=== PATIENT | male | born 1975 ===

== ENCOUNTER 2016-08-18 16:13 | Emergency (ER) | payer MEDICAID ==
[2016-08-18 16:34] VITALS: BMI 25.0
[2016-08-18 16:55] VITALS: RESP 18; TEMP 98.1; O2SAT 98
--- NOTE | 2016-08-18 17:13 | C.PDOC ---
Chief Complaint (Nursing): Abnormal Skin Integrity Past Medical History Vital Signs: Last Vital Signs Temp 98.1 F 08/18/16 16:54 Pulse 58 L 08/18/16 16:54 Resp 18 08/18/16 16:54 BP 96/54 L 08/18/16 16:54 Pulse Ox 98 08/18/16 16:54 - Medical History PMH: Anxiety, Asthma, Bipolar Disorder, Bronchitis, CHF, COPD, Depression, Diabetes, HTN, Hypercholesterolemia, Kidney Stones, Migraine, Chronic Kidney Disease, Sleep Apnea (bipap) Surgical History: Back Surgery - [facility] Procedures ENDOSC POLYPECTOMY OF LG INTEST (02/14/15) HIGHLY SELECT VAGOTOMY (01/20/15) LAPAROSCOPIC GASTROENTEROSTOMY (01/20/15) OTHER GASTROSCOPY (01/20/15) OTHER SKIN & SUBQ I D (04/19/14) Family History: States: Unknown Family Hx - Social History Hx Tobacco Use: Yes Hx Alcohol Use: No Hx Substance Use: Yes (marijuana) - Immunization History Hx Tetanus Toxoid Vaccination: No Hx Influenza Vaccination: No Hx Pneumococcal Vaccination: No ED Course And Treatment O2 Sat by Pulse Oximetry: 98
--- NOTE | 2016-08-18 17:15 | C.PDOC ---
History Of Present Illness 41 yr old male with PMHx of diabetes and HTN, presents to the ER stating yesterday he was bite by his dog on the right thumb. Patient reports of bite omar on the right thumb and pain to the area due to jerking his hand and hitting his hand on the wall. Patient reports of mild swelling. Patient denies fever, nausea, vomiting, shoulder pain, weakness or numbness. Dog is UTD on vaccinations. Time Seen by Provider: 08/18/16 16:58 Chief Complaint (Nursing): Abnormal Skin Integrity History Per: Patient History/Exam Limitations: no limitations Onset/Duration Of Symptoms: Days (1) Current Symptoms Are (Timing): Still Present - Animal Bite Description Of The Animal: Family Pet Reports Animal Appears: Well Reports Animal's Immunization Status: UTD Past Medical History Reviewed: Historical Data, Nursing Documentation, Vital Signs Vital Signs: Last Vital Signs Temp 98.1 F 08/18/16 16:54 Pulse 58 L 08/18/16 16:54 Resp 18 08/18/16 16:54 BP 96/54 L 08/18/16 16:54 Pulse Ox 98 08/18/16 17:19 - Medical History PMH: Anxiety, Asthma, Bipolar Disorder, Bronchitis, CHF, COPD, Depression, Diabetes, HTN, Hypercholesterolemia, Kidney Stones, Migraine, Chronic Kidney Disease, Sleep Apnea (bipap) Surgical History: Back Surgery - [facility] Procedures ENDOSC POLYPECTOMY OF LG INTEST (02/14/15) HIGHLY SELECT VAGOTOMY (01/20/15) LAPAROSCOPIC GASTROENTEROSTOMY (01/20/15) OTHER GASTROSCOPY (01/20/15) OTHER SKIN & SUBQ I D (04/19/14) Family History: States: No Known Family Hx - Social History Hx Tobacco Use: Yes Hx Alcohol Use: No Hx Substance Use: Yes (marijuana) - Immunization History Hx Tetanus Toxoid Vaccination: No Hx Influenza Vaccination: No Hx Pneumococcal Vaccination: No Review Of Systems Except As Marked, All Systems Reviewed And Found Negative. Constitutional: Negative for: Fever Gastrointestinal: Negative for: Nausea, Vomiting Musculoskeletal: Positive for: Hand Pain (Right hand, thumb pain ). Negative for: Shoulder Pain Skin: Positive for: Other (Dog bite to the right thumb) Neurological: Negative for: Weakness, Numbness Physical Exam - Physical Exam Appears: Non-toxic, No Acute Distress Skin: Warm, Dry, Other (Right hand, 0.5cm abrasion to the right thumb. ) Head: Atraumatic, Normacephalic Oral Mucosa: Moist Extremity: Normal ROM, Other (Right Hand, Thumb - Minimal swelling. Tender to touch. ) Neurological/Psych: Oriented x3, Normal Speech, Normal Motor ED Course And Treatment O2 Sat by Pulse Oximetry: 98 Medical Decision Making Medical Decision Making: PLAN: * X-Ray - Right Hand Thumb * Augmentin PO * Motrin PO * Tylenol PO Disposition Counseled Patient/Family Regarding: Studies Performed, Diagnosis, Need For Followup - Disposition Disposition: HOME/ ROUTINE Disposition Time: 18:09 Condition: STABLE Additional Instructions: Keep wound clean and dry. Follow up with your doctor as need. Prescriptions: Amoxicillin/Clavulanate [Augmentin 875 MG-125 MG] 1 tab PO BID #14 tab Ibuprofen [Motrin] 600 mg PO TID #15 tab Instructions: Animal Bite (ED) Forms: General Discharge Instructions - POA Present On Arrival: None - Clinical Impression Clinical Impression: Abrasion - Scribe Statement The provider has reviewed the documentation as recorded by the Melanie Shaw Provider Attestation: All medical record entries made by the Melanie were at my direction and personally dictated by me. I have reviewed the chart and agree that the record accurately reflects my personal performance of the history, physical exam, medical decision making, and the department course for this patient. I have also personally directed, reviewed, and agree with the discharge instructions and disposition.
[2016-08-18] MEDS ORDERED: Amoxicillin-Clav 875-125 mg Tab PO STA (17:17)
[2016-08-18] MEDS ORDERED: Amoxicillin-Clav 875-125 mg Tab PO ONE (17:23)
--- NOTE | 2016-08-18 17:45 | RAD ---
PROCEDURE: Right Thumb radiographs. HISTORY: dog bite COMPARISON: 08/15/2015. TECHNIQUE: AP radiograph of the right hand, as well as spot oblique and lateral images of thumb were obtained. FINDINGS: RIGHT THUMB: Normal right thumb, without fracture or focal lesion. Remainder of the right hand (as seen on the AP view) grossly unremarkable. JOINTS: Normal. SOFT TISSUES: Normal. No radiopaque foreign body. OTHER FINDINGS: None. IMPRESSION: Normal examination. No acute fracture or radiopaque foreign body.
[2016-08-18 18:34] VITALS: BP 102/61; PULSE 61
[2016-08-18] MEDS ORDERED: Bacitracin 500 Units/gm Oint Foilpak UD ONE (18:42)
== END 2016-08-18 18:34 | disposition home or self-care (01) ==
LOC: SUPCPDRO 16:13 → C.ER 16:13
DX: S60.311A Abrasion of right thumb, initial encounter (principal); W54.0XXA Bitten by dog, initial encounter; Y92.009 Unspecified place in unspecified non-institutional (private) residence as the place of occurrence of the external cause

== ENCOUNTER 2016-08-28 07:57 | Emergency (ER) | payer MEDICAID ==
[2016-08-28 07:58] VITALS: BMI 25.0
[2016-08-28 08:06] VITALS: BP 116/74; PULSE 59; RESP 18; TEMP 98.4; O2SAT 100
--- NOTE | 2016-08-28 08:12 | C.PDOC ---
History Of Present Illness 41-year-old male, PMHx includes Hypertension and Diabetes, presents to the emergency department with complaints of right thumb injury sustained yesterday. Patient states he was accidentally struck on base of right thumb with a sledgeharmer. Pain and swelling to the area, that is worse with movement. Patient seen on 08/18, and had treatment for dog bite to right thumb, and he was discharged with Augmentin. No other associated symptoms; Patient completed course of antibx last week. ACCID STRUCK BASE OF R THUMB W SLEDGEHAMMER. PAIN AND SWELLING TO AREA, WORSE W MOVEMENT. seen 08/18 tx for dog bite r thumb dc w augmentin rx. DENIES OTHER ASSOC SX. PS COMPLETED ABX LAST WEEK PMHx of diabetes and HTN EXAM NAD NONTOXIC EXT R HAND MILD SWELL BASE R THUMB NO GROSS DEFORM, LIMTIED ROM DUE TO PAIN. SKIN HEALING BITE WOUNDS X 2, NO S/S INFXN Time Seen by Provider: 08/28/16 08:10 Chief Complaint (Nursing): Finger,Hand,&Wrist History Per: Patient History/Exam Limitations: no limitations Past Medical History Reviewed: Historical Data, Nursing Documentation, Vital Signs Vital Signs: Last Vital Signs Temp 98.4 F 08/28/16 08:03 Pulse 59 L 08/28/16 08:03 Resp 18 08/28/16 08:03 BP 116/74 08/28/16 08:03 Pulse Ox 100 08/28/16 08:48 - Medical History PMH: Anxiety, Asthma, Bipolar Disorder, Bronchitis, CHF, COPD, Depression, Diabetes, HTN, Hypercholesterolemia, Kidney Stones, Migraine, Chronic Kidney Disease, Sleep Apnea (bipap) Surgical History: Back Surgery - [facility] Procedures ENDOSC POLYPECTOMY OF LG INTEST (02/14/15) HIGHLY SELECT VAGOTOMY (01/20/15) LAPAROSCOPIC GASTROENTEROSTOMY (01/20/15) OTHER GASTROSCOPY (01/20/15) OTHER SKIN & SUBQ I D (04/19/14) Family History: States: Unknown Family Hx - Social History Hx Tobacco Use: Yes Hx Alcohol Use: No Hx Substance Use: Yes (marijuana) - Immunization History Hx Tetanus Toxoid Vaccination: No Hx Influenza Vaccination: No Hx Pneumococcal Vaccination: No Review Of Systems Except As Marked, All Systems Reviewed And Found Negative. Constitutional: Negative for: Fever, Chills Cardiovascular: Negative for: Chest Pain, Palpitations Respiratory: Negative for: Cough, Shortness of Breath Gastrointestinal: Negative for: Nausea, Vomiting Musculoskeletal: Positive for: Hand Pain (r thumb ) Physical Exam - Physical Exam Appears: No Acute Distress Skin: Warm, Dry, No Rash, Other (HEALING BITE WOUNDS X 2, NO S/S INFXN) Head: Atraumatic, Normacephalic Eye(s): bilateral: Normal Inspection, PERRL Nose: Normal Oral Mucosa: Moist Lips: Normal Appearing Neck: Normal ROM Respiratory: No Accessory Muscle Use Extremity: Other ( R HAND MILD SWELL BASE R THUMB NO GROSS DEFORM, LIMTIED ROM DUE TO PAIN.) ED Course And Treatment O2 Sat by Pulse Oximetry: 100 - Other Rad r thumb X-Ray: Interpreted by Me (NEG), Read By Radiologist (D/W DR LLOYD NEG ACUTE FINDINGS) R WRIST X-Ray: Interpreted by Me, Read By Radiologist (D/W DR LLOYD NEG ACUTE FINDINGS) Progress - Data Reviewed Data Reviewed: Old records Disposition Counseled Patient/Family Regarding: Studies Performed, Diagnosis, Need For Followup - Disposition Referrals: [facility] [Outside] [facility] [Outside] Kd Kothari MD [Staff Provider] - Disposition: HOME/ ROUTINE Disposition Time: 08:46 Condition: GOOD Additional Instructions: TAKE MOTRIN AND/OR TYLENOL DIRECTED NEEDED FOR PAIN. WEAR SPLINT X 2-3 DAYS NEEDED. FOLLOW UP WITH PMD AND/OR HAND SURGERY. Instructions: Contusion in Adults (ED) - Clinical Impression Clinical Impression: Thumb contusion - Scribe Statement The provider has reviewed the documentation as recorded by the Melanie Benavides All medical record entries made by the Scribe were at my direction and personally dictated by me. I have reviewed the chart and agree that the record accurately reflects my personal performance of the history, physical exam, medical decision making, and the department course for this patient. I have also personally directed, reviewed, and agree with the discharge instructions and disposition. Orthopedic Care Application Of:: Thumb Spica Splint
--- NOTE | 2016-08-28 11:27 | RAD ---
Right thumb four views History: Injury. Comparison: None available. Findings: No evidence for acute displaced fracture or dislocation. Transverse lucency through the base of the 1st distal phalanx on series 4, image 1 may represent a vascular groove. Clinical correlation. Impression: No evidence for acute displaced fracture or dislocation. Transverse lucency through the base of the 1st distal phalanx on series 4, image 1 may represent a vascular groove. Clinical correlation. If pain persists, consider MRI.
--- NOTE | 2016-08-28 13:56 | RAD ---
Right wrist four views History: Trauma. Comparison: Hand pain. Comparison: None available. Technique: Four views of the right wrist were performed. Findings: No evidence for acute displaced fracture or dislocation. Impression: Negative acute. If pain persists, consider MRI.
== END 2016-08-28 09:00 | disposition home or self-care (01) ==
LOC: C.ER 07:57
DX: S60.011A Contusion of right thumb without damage to nail, initial encounter (principal); W22.8XXA Striking against or struck by other objects, initial encounter

== ENCOUNTER 2016-09-16 11:58 | Emergency (ER) | payer MEDICAID ==
[2016-09-16 11:58] VITALS: BMI 25.0
[2016-09-16 12:28] VITALS: PULSE 73; RESP 18; TEMP 98.6; O2SAT 97
--- NOTE | 2016-09-16 12:49 | C.PDOC ---
History Of Present Illness 41 yr old male presents to the ER with complaints of right thumb pain since August 28. Patient states he was seen here in ED on August 28 and was refereed to Dr. Kothari but did not follow up and now has persistent right thumb pain and swelling. XRay were reviewed from August 24 which were normal and also from August 18 related to a dog bite which were also negative. Patient denies fever, chest pain, SOB, nausea, vomiting, back pain, shoulder pain, arm pain, weakness or numbness. Time Seen by Provider: 09/16/16 12:37 Chief Complaint (Nursing): Upper Extremity Problem/Injury History Per: Patient History/Exam Limitations: no limitations Onset/Duration Of Symptoms: Days Past Medical History Reviewed: Historical Data, Nursing Documentation, Vital Signs Vital Signs: Last Vital Signs Temp 98.6 F 09/16/16 12:12 Pulse 73 09/16/16 12:12 Resp 18 09/16/16 12:12 BP 95/57 L 09/16/16 12:12 Pulse Ox 97 09/16/16 13:03 - Medical History PMH: Anxiety, Asthma, Bipolar Disorder, Bronchitis, CHF, COPD, Depression, Diabetes, HTN, Hypercholesterolemia, Kidney Stones, Migraine, Chronic Kidney Disease, Sleep Apnea (bipap) Surgical History: Back Surgery - [facility] Procedures ENDOSC POLYPECTOMY OF LG INTEST (02/14/15) HIGHLY SELECT VAGOTOMY (01/20/15) LAPAROSCOPIC GASTROENTEROSTOMY (01/20/15) OTHER GASTROSCOPY (01/20/15) OTHER SKIN & SUBQ I D (04/19/14) Family History: States: No Known Family Hx - Social History Hx Tobacco Use: Yes Hx Alcohol Use: No Hx Substance Use: Yes (marijuana) - Immunization History Hx Tetanus Toxoid Vaccination: No Hx Influenza Vaccination: Yes (''Apr 2016'') Hx Pneumococcal Vaccination: No Review Of Systems Except As Marked, All Systems Reviewed And Found Negative. Constitutional: Negative for: Fever Cardiovascular: Negative for: Chest Pain Respiratory: Negative for: Shortness of Breath Gastrointestinal: Negative for: Nausea, Vomiting Musculoskeletal: Positive for: Other ((+) Right hand thumb pain and swelling ). Negative for: Shoulder Pain, Arm Pain, Back Pain Neurological: Negative for: Weakness, Numbness Physical Exam - Physical Exam Appears: Well, Non-toxic Skin: Warm, Dry, No Rash Head: Atraumatic, Normacephalic Oral Mucosa: Moist Neck: Normal, Normal ROM, Supple Chest: Symmetrical, No Tenderness Cardiovascular: Rhythm Regular, No Murmur Respiratory: Normal Breath Sounds, No Rales, No Rhonchi, No Stridor, No Wheezing Extremity: Normal ROM, Capillary Refill (<2), No Deformity, Other ((+) Right Thumb - Tenderness and swelling ) Neurological/Psych: Oriented x3, Normal Speech ED Course And Treatment O2 Sat by Pulse Oximetry: 97 Progress Note: [facility] was reviewed which shows a extensive regiment. Last refill was September 06, 2016. Patient states he doesn't want any medicine just requesting a thumb splint. Medical Decision Making Medical Decision Making: chronic R thumb pain, normal x-ray 08/28/16 [facility] reviewed: Vicodin and Tramadol regimen last filled 09/06/16 but pt claims he returned them to Dr. Cornejo thumb splint in place, refer to Hand specialist. 1300: d/w Dr. Cornejo denies that pt returns his bottles of Vicodin and Tramadol to his office. pt then recanted, claiming he returned the full bottles to the [facility] doctor/ nurse @ Dr. Cornejo's office. pt with long h/o chronic pain, mental illness and drug seeking behavior. Disposition Doctor Will See Patient In The: Office Counseled Patient/Family Regarding: Studies Performed, Diagnosis - Disposition Referrals: [facility] [Outside] [facility] [Outside] Disposition: HOME/ ROUTINE Disposition Time: 12:50 Condition: GOOD Additional Instructions: continue thumb splint in place follow-up with Dr. Kothari (as previously referred 08/28/16) who is our [place]/ Hand specialist [phone] Contact [facility] as needed for prompt appointments. Instructions: Finger Sprain (ED) - Clinical Impression Clinical Impression: Thumb pain - Scribe Statement The provider has reviewed the documentation as recorded by the Melanie Shaw Provider Attestation: All medical record entries made by the Prabhakaribfeliciano were at my direction and personally dictated by me. I have reviewed the chart and agree that the record accurately reflects my personal performance of the history, physical exam, medical decision making, and the department course for this patient. I have also personally directed, reviewed, and agree with the discharge instructions and disposition.
[2016-09-16 13:15] VITALS: BP 96/49
== END 2016-09-16 13:15 | disposition home or self-care (01) ==
LOC: C.ER 11:58
DX: M79.644 Pain in right finger(s) (principal)

== ENCOUNTER 2016-10-05 06:31 | Day surgery (SDC) | payer MEDICAID ==
[2016-10-05] MEDS ORDERED: EPINEPHrine 1:1000 Nasal Sol(30mL) ONE (07:25)
[2016-10-05] MEDS ORDERED: Sodium Chloride 0.9% 20 ML IV ONE (07:26)
[2016-10-05] MEDS ORDERED: Lidocaine 1% w Epi 1:100,000 Inj ONE (07:26)
[2016-10-05] MEDS ORDERED: ceFAZolin IV 1 gm in Dextrose 1 GM/50 ML BAG IVPB ONE (07:27)
[2016-10-05] MEDS ORDERED: Propofol 10 mg/ml Inj (20 ML) ONE (07:36)
[2016-10-05] MEDS ORDERED: Midazolam 2 MG/2 ML VIAL ONE (07:36)
[2016-10-05] MEDS ORDERED: Lactated Ringer's 1,000 ML IV ONE (07:50)
[2016-10-05] MEDS ORDERED: Morphine 4 MG/ML VIAL ONE (08:36)
[2016-10-05] MEDS ORDERED: Acetaminophen-Codeine 300/30 mg Tab PO PRN (09:32)
[2016-10-05] MEDS ORDERED: Dextrose 5%/0.45% NS 1,000 ML IV SCH (09:45)
[2016-10-05] MEDS: HYDROmorphone 0.5 mg/0.5 ml ISec IVP PRN ×2 (09:55→10:03)
--- NOTE | 2016-10-05 09:57 | OP ---
PROCEDURE DATE: 10/05/2016 PREOPERATIVE DIAGNOSES: Deviated septum, enlarged turbinates, sinusitis. POSTOPERATIVE DIAGNOSES: Deviated septum, enlarged turbinates, sinusitis. PROCEDURES: Bilateral endoscopic maxillary antrostomy, bilateral endoscopic ethmoidectomy, bilateral endoscopic inferior turbinate reduction, septoplasty. 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 DESCRIPTION OF PROCEDURE: The patient was brought in the room, placed in supine position. Anesthesia was initiated through an ET tube. Adrenaline- soaked pledgets were inserted into the nasal cavity and remained there for at least 5 minutes and removed. Navigation was set up and used throughout the case in order to ensure that the skull base and orbit were not entered. The patient was draped in the usual manner. The septum was injected on both sides with lidocaine with epinephrine. Morton's incision was made on the left and a mucoperichondrial flap was raised. Next, a vertical incision was made in the cartilage leaving a 1.5 cm anterior and superior strut and a mucoperichondrial flap was raised on the other side. Deviated portion of the bone and cartilage were removed using forceps. Quilting suture was used to suture the 2 flaps together and close the Rahat's incision. Next, a 0 degree scope was inserted into the nasal cavity and the inferior turbinates were noted to be enlarged and reduced in size using straight scissors, going from an inferior to superior, anterior to posterior direction. This was done first on the right, then on the left. Bleeding was controlled using suction cautery. Attention was turned to the left. The middle turbinate was medialized. The uncinate process was medialized using a Washington elevator and removed using forceps. A debrider was used to enter the ethmoid bulla inferomedially going posteriorly to the basal lamella then anteriorly and superiorly until the ethmoid bulla was removed. The basal lamella was entered. Posterior ethmoid cells were entered and opened. The skull base was identified and followed anteriorly all the way to the area of the anterior ethmoid air cells. The maxillary antrum was located using curved suction hooked up to navigation. It was noted to be stenosed. Forceps were used to open the maxillary antrum. Bleeding was controlled using adrenaline-soaked pledgets and suction cautery. Attention was turned to the other side. The middle turbinate was medialized, the uncinate process was medialized using a Washington elevator and removed. Debrider was used to enter the ethmoid bulla inferomedially going posteriorly to the basal lamella, then anteriorly and superiorly until the ethmoid bulla was removed. Basal lamella was entered. Posterior ethmoid cells were entered and opened. Skull base was identified and followed anteriorly all the way to the area of the anterior ethmoid air cells. Curved suction hooked up to navigation was used to locate the maxillary antrum which was noted to be stenosed and opened using forceps. Bleeding was controlled using suction cautery and Afrin-soaked pledgets. Stents were placed. Splints were placed. The patient was taken off anesthesia and taken to recovery room in stable manner. Lavon Rivas MD cc: [phone] TT: 10/05/2016 09:57:07 mary BYRD
[2016-10-05] MEDS ORDERED: HYDROmorphone 0.5 mg/0.5 ml ISec IVP ONE (10:17)
[2016-10-05 13:22] VITALS: BP 118/68; PULSE 71; RESP 20; TEMP 97.8; O2SAT 98
== END 2016-10-05 13:10 | disposition home or self-care (01) ==
LOC: C.SDS 06:31
PROVIDERS: ATTEND Otolaryngology
DX: J34.2 Deviated nasal septum (principal); J34.3 Hypertrophy of nasal turbinates; J32.0 Chronic maxillary sinusitis; J32.2 Chronic ethmoidal sinusitis; I10 Essential (primary) hypertension
CPT/HCPCS: 30140; 30520; 31255; 31256; 82948; 88304; J0690; J1170; J2250; J2270; J2405; J2704; J3010; J7120

== ENCOUNTER 2017-02-09 11:40 | Emergency (ER) | payer MEDICAID ==
[2017-02-09 11:41] VITALS: BMI 25.0
[2017-02-09 11:50] VITALS: TEMP 98.7; O2SAT 98
[2017-02-09] MEDS ORDERED: Naproxen 550 mg Tab PO STA (12:14)
[2017-02-09] MEDS ORDERED: Naproxen 550 mg Tab PO ONE (12:19)
--- NOTE | 2017-02-09 12:36 | RAD ---
PROCEDURE: Right Hand Radiographs. HISTORY: LEFT HAND/THUMB PAIN AFTER INJURY COMPARISON: None available. FINDINGS: BONES: No acute displaced fracture. JOINTS: No dislocation. SOFT TISSUES: Soft tissue swelling. No evidence of radiopaque foreign body. OTHER FINDINGS: None. IMPRESSION: Soft tissue swelling. No acute displaced fracture, dislocation, or significant joint effusion identified. If symptoms persist, or if there is continued clinical concern, x-ray follow-up in 7-10 days should be considered.
--- NOTE | 2017-02-09 13:37 | C.PDOC ---
History Of Present Illness 41 year old male presents to the ED with complaints of pain to the right thumb area after hitting thumb with hammer yesterday (patient is left hand dominant). He notes pain worsnes with movement of the dig. Patient UTD with tetanus vaccination. He deies other injuries, sensory changes. Time Seen by Provider: 02/09/17 11:59 Chief Complaint (Nursing): Finger,Hand,&Wrist History Per: Patient History/Exam Limitations: no limitations Onset/Duration Of Symptoms: Days (1 day ) Current Symptoms Are (Timing): Still Present Quality: "Pain" Severity: Mild Exacerbating Factor(s): Movement Past Medical History Reviewed: Historical Data, Nursing Documentation, Vital Signs Vital Signs: Last Vital Signs Temp 98.7 F 02/09/17 11:49 Pulse 78 02/09/17 13:54 Resp 16 02/09/17 13:54 BP 119/71 02/09/17 13:54 Pulse Ox 98 02/09/17 16:33 - Medical History PMH: Anxiety, Asthma, Bipolar Disorder, Bronchitis, CHF, Depression, Diabetes, HTN, Hypercholesterolemia, Kidney Stones, Migraine, Chronic Kidney Disease, Sleep Apnea (bipap) Surgical History: Back Surgery, Endoscopy - [facility] Procedures ENDOSC POLYPECTOMY OF LG INTEST (02/14/15) HIGHLY SELECT VAGOTOMY (01/20/15) LAPAROSCOPIC GASTROENTEROSTOMY (01/20/15) OTHER GASTROSCOPY (01/20/15) OTHER SKIN & SUBQ I D (04/19/14) Family History: States: No Known Family Hx - Social History Hx Tobacco Use: Yes Hx Alcohol Use: No Hx Substance Use: Yes (marijuana) - Immunization History Hx Tetanus Toxoid Vaccination: Yes Hx Influenza Vaccination: Yes (''Apr 2016'') Hx Pneumococcal Vaccination: Yes Review Of Systems Except As Marked, All Systems Reviewed And Found Negative. Constitutional: Negative for: Fever Musculoskeletal: Positive for: Hand Pain (right thumb pain ) Skin: Negative for: Rash Neurological: Negative for: Weakness, Numbness Physical Exam - Physical Exam Appears: Well, Non-toxic, Other (in mild pain ) Skin: Warm, Dry, No Rash, Other (Small abrasion at IP joint (dosal aspect) of right thumb ) Cardiovascular: Rhythm Regular Respiratory: Normal Breath Sounds, No Rales, No Rhonchi, No Wheezing Extremity: Normal ROM (full ROM of right thumb and wrist ), Tenderness (diffuse tenderness to palpation of right thumb ), Capillary Refill (< 2 sec all digits ) , No Deformity, Swelling (mild swelling of the right thumb ) Pulses: Left Radial: Normal, Right Radial: Normal Neurological/Psych: Oriented x3, Normal Sensation ED Course And Treatment O2 Sat by Pulse Oximetry: 98 (room air ) Pulse Ox Interpretation: Normal - Other Rad Right hand X-ray X-Ray: Viewed By Me, Read By Radiologist Interpretation: FINDINGS: BONES: No acute displaced fracture. JOINTS: No dislocation. SOFT TISSUES: Soft tissue swelling. No evidence of radiopaque foreign body. OTHER FINDINGS: None. IMPRESSION: Soft tissue swelling. No acute displaced fracture, dislocation, or significant joint effusion identified. If symptoms persist, or if there is continued clinical concern, x- ray follow-up in 7-10 days should be considered. Progress Note: Right hand X-ray ordered and reviewed. Patient given PO Naprosyn. Xray (-) for fractures. Albert wrap applied to area by billing and quality technician. Patient given Rx for naprosyn and instructed to follow up with hand surgeon within 1 week. He understands he should return to ED if symptoms worsen. Reevaluation Time: 13:40 Reassessment Condition: Improved Disposition Counseled Patient/Family Regarding: Studies Performed, Diagnosis, Need For Followup, Rx Given - Disposition Referrals: Roosevelt Gracia MD [Staff Provider] - Disposition: HOME/ ROUTINE Disposition Time: 13:40 Condition: STABLE Additional Instructions: FOLLOW UP WITH HAND SURGEON WITHIN 1 WEEK USE PAIN MEDICATION NEEDED RETURN TO ER IF SYMPTOMS WORSEN Prescriptions: Naproxen [Naprosyn] 1 tab PO BID PRN #25 tab PRN Reason: Pain Instructions: Finger Sprain (ED) Forms: SADAR 3D (Norwegian) Print Language: WELSH - POA Present On Arrival: Falls Or Trauma - Clinical Impression Clinical Impression: Thumb sprain, Contusion - Scribe Statement The provider has reviewed the documentation as recorded by the Prabhakaribfeliciano Brown All medical record entries made by the Prabhakaribfeliciano were at my direction and personally dictated by me. I have reviewed the chart and agree that the record accurately reflects my personal performance of the history, physical exam, medical decision making, and the department course for this patient. I have also personally directed, reviewed, and agree with the discharge instructions and disposition.
[2017-02-09 13:55] VITALS: BP 119/71; PULSE 78; RESP 16
== END 2017-02-09 13:54 | disposition home or self-care (01) ==
LOC: C.ER 11:40
DX: S63.601A Unspecified sprain of right thumb, initial encounter (principal); S60.011A Contusion of right thumb without damage to nail, initial encounter; W22.8XXA Striking against or struck by other objects, initial encounter; Y93.89 Activity, other specified; Y92.9 Unspecified place or not applicable

== ENCOUNTER 2017-02-16 16:21 | Emergency (ER) | payer MEDICAID ==
[2017-02-16 16:21] VITALS: BMI 25.0
[2017-02-16] MEDS ORDERED: Sodium Chloride 0.9% 1,000 ML IV ONE ×2 (17:30→18:01)
[2017-02-16] MEDS ORDERED: Sodium Chloride 0.9% 1,000 ML ONE ×2 (17:44→18:48)
[2017-02-16 17:56] LABS: CHLORIDE 103 mmol/L (98-107); POTASSIUM 4.2 mmol/L (3.6-5.2); SODIUM 140 mmol/L (132-148)
--- NOTE | 2017-02-16 17:57 | RAD ---
HISTORY: cough, fever COMPARISON: Chest x-ray performed 08/30/16 TECHNIQUE: Chest PA and lateral FINDINGS: LUNGS: No focal consolidation. Please note that chest x-ray has limited sensitivity for the detection of pulmonary masses. PLEURA: No significant pleural effusion identified. No definite pneumothorax . CARDIOVASCULAR: The cardiomediastinal silhouette appears within normal limits of size. OSSEOUS STRUCTURES: No acute osseous abnormality identified. VISUALIZED UPPER ABDOMEN: Unremarkable. OTHER FINDINGS: None. IMPRESSION: No focal consolidation, significant pleural effusion, or definite pneumothorax identified.
[2017-02-16 17:58] LABS: ALB/GLOB RATIO 1.8 (1.0-2.1); ALKALINE PHOSPHATASE 72 U/L (38-126); AST/SGOT 23 U/L (17-59); BILIRUBIN,TOTAL 0.5 mg/dL (0.2-1.3); BLOOD UREA NITROGEN 15 mg/dL (9-20); CARBON DIOXIDE 23 mmol/L (22-30); GFR AFRICAN-AMERICAN > 60; TOTAL PROTEIN 6.7 g/dL (6.3-8.3)
[2017-02-16 17:59] LABS: ALT/SGPT 36 U/L (21-72); GLUCOSE,RANDOM 70 mg/dL (75-110)
[2017-02-16 18:29] LABS: HEMATOCRIT 40.5 % (35.0-51.0); MEAN CELL VOLUME 88.8 fL (80.0-94.0); MEAN CORPUSCULAR HEMOGLOBIN 30.6 pg (27.0-31.0); MEAN CORPUSCULAR HGB CONC 34.4 g/dL (33.0-37.0); MEAN PLATELET VOLUME 8.1 fL (7.2-11.7); RED CELL DISTRIBUTION WIDTH 13.9 % (11.5-14.5); WHITE BLOOD COUNT 8.2 K/uL (4.8-10.8)
[2017-02-16 18:30] LABS: BASO % 0.4 % (0.0-2.0); EOS # 0.2 K/uL (0.0-0.7); EOS % 2.9 % (0.0-4.0); LYMPH # 2.9 K/uL (1.0-4.3); LYMPH % 35.6 % (20.0-40.0); MONO # 0.8 K/uL (0.0-0.8); MONO % 9.5 % (0.0-10.0); NRBC % 0.1 % (0.0-2.0)
[2017-02-16 18:38] VITALS: TEMP 97.8
[2017-02-16] MEDS ORDERED: Albuterol-Ipratrop 3 mg / 0.5 (3 ml) UD INH STA (19:34)
[2017-02-16] MEDS ORDERED: MethylPREDNISolone 40 mg Vial IVP STA (19:34)
[2017-02-16] MEDS ORDERED: Albuterol-Ipratrop 3 mg / 0.5 (3 ml) UD ONE (19:40)
[2017-02-16] MEDS ORDERED: MethylPREDNISolone 40 mg Vial ONE (19:40)
--- NOTE | 2017-02-16 20:08 | C.PDOC ---
History Of Present Illness 41 y/o male presents to ED with complaints of cough, wheezing, body aches and subjective fever for 3 days. Patient reports decreased PO intake and notes vomiting and diarrhea. Patient was seen at clinic and was noted to be hypotensive and advised he come to ed for further evaluation. Patient denies chest pain, sob or any other complaints at this time. Time Seen by Provider: 02/16/17 16:47 Chief Complaint (Nursing): Flu-like Symptoms History Per: Patient History/Exam Limitations: no limitations Onset/Duration Of Symptoms: Days Current Symptoms Are (Timing): Still Present Associated Symptoms: Fever, Cough Past Medical History Reviewed: Historical Data, Nursing Documentation, Vital Signs Vital Signs: Last Vital Signs Temp 97.8 F 02/16/17 18:37 Pulse 70 02/16/17 21:03 Resp 18 02/16/17 21:03 BP 120/78 02/16/17 21:03 Pulse Ox 100 02/16/17 21:09 - Medical History PMH: Anxiety, Asthma, Bipolar Disorder, Bronchitis, CHF, Depression, Diabetes, HTN, Hypercholesterolemia, Kidney Stones, Migraine, Chronic Kidney Disease, Sleep Apnea (bipap) Surgical History: Back Surgery, Endoscopy - [facility] Procedures ENDOSC POLYPECTOMY OF LG INTEST (02/14/15) HIGHLY SELECT VAGOTOMY (01/20/15) LAPAROSCOPIC GASTROENTEROSTOMY (01/20/15) OTHER GASTROSCOPY (01/20/15) OTHER SKIN & SUBQ I D (04/19/14) Family History: States: Unknown Family Hx - Social History Hx Tobacco Use: Yes Hx Alcohol Use: No Hx Substance Use: Yes (marijuana) - Immunization History Hx Tetanus Toxoid Vaccination: Yes Hx Influenza Vaccination: Yes (''Apr 2016'') Hx Pneumococcal Vaccination: Yes Review Of Systems Except As Marked, All Systems Reviewed And Found Negative. Constitutional: Positive for: Fever Respiratory: Positive for: Cough Musculoskeletal: Positive for: Other (body aches) Physical Exam - Physical Exam Appears: Non-toxic, No Acute Distress Skin: Normal Color, Warm, Dry, No Rash Head: Atraumatic, Normacephalic Eye(s): bilateral: Normal Inspection, EOMI Ear(s): Bilateral: Normal Oral Mucosa: Moist Throat: Normal, No Erythema Chest: Symmetrical Cardiovascular: Rhythm Regular, No Murmur Respiratory: No Rales, No Rhonchi, Wheezing (Mild bilateral) Gastrointestinal/Abdominal: Soft, No Tenderness, No Guarding, No Rebound Extremity: Normal ROM, Capillary Refill (<2 seconds) Neurological/Psych: Oriented x3, Normal Speech, Normal Cognition, Normal Motor, Normal Sensation ED Course And Treatment - Laboratory Results Result Diagrams: 02/16/17 17:41 02/16/17 17:41 O2 Sat by Pulse Oximetry: 100 (RA) Pulse Ox Interpretation: Normal Medical Decision Making Medical Decision Making: Impression: Viral illness On re-exam 70/50 2nd IV placed fluids continued initial 86 finger stick sugar repeat 70 finger stick Patient given meal and juice Old records reviewed, the patient has been seen in this ED for similar symptoms in the past and has a history of hypotension before. On re-exam, the patient reports improvement of symptoms. Lungs are CTA, heart is RRR, abdomen is soft, non-tender and tolerating PO well. Ambulatory in the ED steady. Follow up with the medical doctor within 1-2 days. Return if worsened. Disposition - Disposition Referrals: Nicole Palma MD [Medical Doctor] - Disposition: HOME/ ROUTINE Disposition Time: 21:06 Condition: GOOD Additional Instructions: Follow up with the medical doctor within 1-2 days. Return if worsened. Prescriptions: Loratadine [Claritin] 10 mg PO DAILY #10 tab predniSONE [Prednisone] 20 mg PO BID #10 tab Spacer, Inhalation [Aerochamber] 1 inh IH QID #1 dev Instructions: Hypotension (GEN), Viral Syndrome (ED) Forms: [facility] (Korean) - Clinical Impression Clinical Impression: Vomiting, Hypotension, Viral syndrome - PA / ENTERPRISE SYSTEMS ADMINISTRATOR / Resident Statement MD/DO has reviewed & agrees with the documentation as recorded. - Scribe Statement The provider has reviewed the documentation as recorded by the Prabhakaribfeliciano Hampton All medical record entries made by the Melanie were at my direction and personally dictated by me. I have reviewed the chart and agree that the record accurately reflects my personal performance of the history, physical exam, medical decision making, and the department course for this patient. I have also personally directed, reviewed, and agree with the discharge instructions and disposition.
[2017-02-16 21:03] VITALS: BP 120/78; PULSE 70; RESP 18
[2017-02-16 21:09] VITALS: O2SAT 100
== END 2017-02-16 21:30 | disposition home or self-care (01) ==
LOC: C.ER 16:21
DX: B34.9 Viral infection, unspecified (principal); I95.9 Hypotension, unspecified; R11.10 Vomiting, unspecified
CPT/HCPCS: 71020; 80053; 82948; 83690; 85025; 96361; 96374; 96375; 99285; J1885; J2405; J2920; J7040

== ENCOUNTER 2017-03-16 16:44 | Emergency (ER) | payer MEDICAID ==
[2017-03-16 16:44] VITALS: BMI 25.0
[2017-03-16 17:00] VITALS: BP 103/62; PULSE 63; RESP 20; TEMP 98; O2SAT 98
--- NOTE | 2017-03-16 17:25 | C.PDOC ---
History Of Present Illness 41 y/o male c/o painful lump to left side of his neck since last night. He denies falls/injuries, fever, sore throat, ear pain, rash, cough, dental pain, or runny nose. Time Seen by Provider: 03/16/17 16:54 Chief Complaint (Nursing): ENT Problem History Per: Patient History/Exam Limitations: None Onset/Duration Of Symptoms: Days Current Symptoms Are (Timing): Still Present Symptoms Have Been: Continuous Severity: Moderate Past Medical History Reviewed: Historical Data, Nursing Documentation, Vital Signs Vital Signs: Last Vital Signs Temp 98 F 03/16/17 16:53 Pulse 63 03/16/17 16:53 Resp 20 03/16/17 16:53 BP 103/62 03/16/17 16:53 Pulse Ox 98 03/16/17 18:57 - Medical History PMH: Anxiety, Asthma, Bipolar Disorder, Bronchitis, CHF, Depression, Diabetes, HTN, Hypercholesterolemia, Kidney Stones, Migraine, Chronic Kidney Disease, Sleep Apnea (bipap) Surgical History: Back Surgery, Endoscopy - [facility] Procedures ENDOSC POLYPECTOMY OF LG INTEST (02/14/15) HIGHLY SELECT VAGOTOMY (01/20/15) LAPAROSCOPIC GASTROENTEROSTOMY (01/20/15) OTHER GASTROSCOPY (01/20/15) OTHER SKIN & SUBQ I D (04/19/14) Family History: States: No Known Family Hx - Social History Hx Tobacco Use: Yes Hx Alcohol Use: No Hx Substance Use: Yes - Immunization History Hx Tetanus Toxoid Vaccination: Yes Hx Influenza Vaccination: No Hx Pneumococcal Vaccination: No Review Of Systems Except As Marked, All Systems Reviewed And Found Negative. Constitutional: Negative for: Fever, Chills Cardiovascular: Negative for: Chest Pain Respiratory: Negative for: Cough, Shortness of Breath, Wheezing Gastrointestinal: Negative for: Nausea, Vomiting, Abdominal Pain Musculoskeletal: Positive for: Neck Pain Skin: Negative for: Rash Neurological: Negative for: Headache, Dizziness Physical Exam - Physical Exam Appears: Well, Non-toxic, In Acute Distress (in mild pain ) Skin: Normal Color, Warm, Dry, No Rash Head: Normacephalic Oral Mucosa: Moist Tongue: Normal Appearing, No Swelling Lips: Normal Appearing, No Swelling Teeth: Normal Dentition, No Caries Gingiva: Normal Appearing, No Abscess Throat: Normal, No Erythema, No Exudate, No Drooling Neck: Normal ROM, Supple Lymphatic: Other (left side: tender, palpable tonsilar lymph node, appx 2.0 cm in diamter. No erythema, fluctuance, or induration. Non-tender, non swollen parotid and submental glands. ) Chest: Symmetrical Cardiovascular: Rhythm Regular, No Murmur Respiratory: Normal Breath Sounds, No Rales, No Rhonchi, No Wheezing Gastrointestinal/Abdominal: Normal Exam, Bowel Sounds, Soft, No Tenderness Extremity: Normal ROM Neurological/Psych: Oriented x3 ED Course And Treatment O2 Sat by Pulse Oximetry: 98 (RA) Pulse Ox Interpretation: Normal Progress Note: Patient given IM toradol for pain, and PO Clindamycin for lymphadenitis. He was given Rxs for Clindamycin and Naprosyn, and instructed to follow up with PMD/clinic in 1-2 days. Reevaluation Time: 17:50 Reassessment Condition: Improved (Patient reassessed, is resting comfortably and states pain has improved.) Disposition Counseled Patient/Family Regarding: Diagnosis, Need For Followup, Rx Given - Disposition Referrals: Lavon Rivas MD [Staff Provider] - Nicole Palma MD [Medical Doctor] - Disposition: HOME/ ROUTINE Disposition Time: 17:50 Condition: STABLE Additional Instructions: FOLLOW UP WITH YOUR DOCTOR IN 1-2 DAYS USE MEDICATIONS DIRECTED RETURN TO ER IF SYMPTOMS WORSEN Prescriptions: Clindamycin [Cleocin] 300 mg PO TID #21 cap Naproxen [Naprosyn] 1 tab PO BID PRN #25 tab PRN Reason: Pain Instructions: Lymphadenopathy (ED) Forms: [employer] [facility] (Cypriot) Print Language: KYRGYZ - POA Present On Arrival: None - Clinical Impression Clinical Impression: Lymphadenitis - Scribe Statement The provider has reviewed the documentation as recorded by the Scribe SM All medical record entries made by the Scribe were at my direction and personally dictated by me. I have reviewed the chart and agree that the record accurately reflects my personal performance of the history, physical exam, medical decision making, and the department course for this patient. I have also personally directed, reviewed, and agree with the discharge instructions and disposition.
== END 2017-03-16 17:51 | disposition home or self-care (01) ==
LOC: C.ER 16:44
DX: I88.9 Nonspecific lymphadenitis, unspecified (principal)
CPT/HCPCS: 96372; 99283; J1885

== ENCOUNTER 2017-05-20 12:45 | Emergency (ER) | payer MEDICAID ==
[2017-05-20 12:45] VITALS: BMI 25.0
[2017-05-20 12:54] VITALS: RESP 20
[2017-05-20] MEDS ORDERED: Sodium Chloride 0.9% 1,000 ML IV ONE (13:27)
[2017-05-20] MEDS ORDERED: Morphine 4 MG/ML VIAL IV ONE (13:27)
[2017-05-20 13:46] LABS: BASO % 0.6 % (0.0-2.0); EOS # 0.2 K/uL (0.0-0.7); EOS % 2.1 % (0.0-4.0); HEMOGLOBIN 14.3 g/dL (12.0-18.0); LYMPH # 2.9 K/uL (1.0-4.3); LYMPH % 36.7 % (20.0-40.0); MEAN CELL VOLUME 90.1 fL (80.0-94.0); MEAN CORPUSCULAR HEMOGLOBIN 31.5 pg (27.0-31.0); MEAN CORPUSCULAR HGB CONC 34.9 g/dL (33.0-37.0); MEAN PLATELET VOLUME 8.5 fL (7.2-11.7); MONO # 0.5 K/uL (0.0-0.8); NEUT # 4.3 K/uL (1.8-7.0); NEUT % 54.6 % (50.0-75.0); RBC 4.53 Mil/uL (4.40-5.90); RED CELL DISTRIBUTION WIDTH 13.5 % (11.5-14.5); WHITE BLOOD COUNT 7.9 K/uL (4.8-10.8)
[2017-05-20] MEDS ORDERED: Sodium Chloride 0.9% 1,000 ML ONE (13:48)
[2017-05-20] MEDS ORDERED: Morphine 4 MG/ML VIAL ONE (13:48)
[2017-05-20 13:53] LABS: INR 1.1; PROTHROMBIN TIME 11.9 SECONDS (9.7-12.2)
--- NOTE | 2017-05-20 13:53 | US ---
HISTORY: L pain TECHNIQUE: Realtime sonography through the scrotum with color and doppler flow. COMPARISON: None Available. FINDINGS: RIGHT TESTICLE: Measures 2.3 x 3.3 x 5.4 cm. Normal echotexture and flow.Incidental finding(s): 3 mm cyst. RIGHT EPIDIDYMIS: Epididymal head measures 1 x 1.3 cm. Grossly unremarkable appearance with normal flow. LEFT TESTICLE: Measures 2.4 x 3.5 x 4.8 cm. Normal echotexture and flow. LEFT EPIDIDYMIS: Epididymal head measures 1.0 x 1.4 cm. Grossly unremarkable appearance with normal flow. HYDROCELE: Small, bilateral VARICOCELE: Slightly prominent veins, do not constitute varicocele. OTHER FINDINGS: None. IMPRESSION: No acute findings related to/accounting for the clinical presentation. Additional benign and/or incidental findings described above.
[2017-05-20 13:59] LABS: ALB/GLOB RATIO 1.3 (1.0-2.1); ALBUMIN 4.1 g/dL (3.5-5.0); ALT/SGPT 29 U/L (21-72); AST/SGOT 34 U/L (17-59); BLOOD UREA NITROGEN 15 mg/dL (9-20); CALCIUM 8.3 mg/dl (8.6-10.4); GFR AFRICAN-AMERICAN > 60; GFR NON-AFRICAN AMERICAN > 60
[2017-05-20 15:01] LABS: SQUAMOUS EPITHIAL < 1 /hpf (0-5); URINE BILIRUBIN NEGATIVE (NEGATIVE); URINE BLOOD 3+ (NEGATIVE); URINE CALCIUM OXALATE CRYSTALS OCC /hpf (<OCC); URINE CLARITY Hazy (Clear); URINE COLOR Yellow (YELLOW); URINE GLUCOSE (UA) NORMAL (Normal); URINE LEUKOCYTE ESTERASE NEG Leu/uL (Negative); URINE NITRATE NEGATIVE (NEGATIVE); URINE PROTEIN 1+ mg/dL (NEGATIVE); URINE UROBILINOGEN NORMAL mg/dL (0.2-1.0)
--- NOTE | 2017-05-20 15:12 | C.PDOC ---
History Of Present Illness 41 y/o male presents to the ED for evaluation of left-sided testicular pain which began last night and worsened today. Patient states the pain radiates into his groin and also complains of painful urination. He also noticed a pimple on his scrotum; he has been popping the pimple, but it has continued to grow in size. Patient states he has been diagnosed with kidney stones and reports history of similar episodes in the past. He denies fever, chills, penile discharge. Time Seen by Provider: 05/20/17 13:05 Chief Complaint (Nursing): Male Genitourinary History Per: Patient History/Exam Limitations: no limitations Onset/Duration Of Symptoms: Hrs Current Symptoms Are (Timing): Worse Quality Of Discomfort: "Pain" Associated Symptoms: Urinary Symptoms (pain with urination ). denies: Fever, Chills Additional History Per: Patient Past Medical History Reviewed: Historical Data, Nursing Documentation, Vital Signs Vital Signs: Last Vital Signs Temp 98.0 F 05/20/17 15:47 Pulse 52 L 05/20/17 15:47 Resp 20 05/20/17 15:47 BP 114/71 05/20/17 16:28 Pulse Ox 99 05/20/17 16:45 - Medical History PMH: Anxiety, Asthma, Bipolar Disorder, Bronchitis, CHF, Depression, Diabetes, HTN, Hypercholesterolemia, Kidney Stones, Migraine, Chronic Kidney Disease, Sleep Apnea (bipap) Denies: COPD (\\) Surgical History: Back Surgery, Endoscopy - [facility] Procedures ENDOSC POLYPECTOMY OF LG INTEST (02/14/15) HIGHLY SELECT VAGOTOMY (01/20/15) LAPAROSCOPIC GASTROENTEROSTOMY (01/20/15) OTHER GASTROSCOPY (01/20/15) OTHER SKIN & SUBQ I D (04/19/14) Family History: States: Unknown Family Hx - Social History Hx Tobacco Use: Yes Hx Alcohol Use: No Hx Substance Use: Yes - Immunization History Hx Tetanus Toxoid Vaccination: Yes Hx Influenza Vaccination: Yes Hx Pneumococcal Vaccination: No Review Of Systems Constitutional: Negative for: Fever, Chills Genitourinary: Positive for: Other (left-sided testicular pain, pimple on scrotum, pain with urination ). Negative for: Penile Discharge Musculoskeletal: Positive for: Other (groin pain ) Physical Exam - Physical Exam Appears: Non-toxic, In Acute Distress (in painful distress) Skin: Warm, Dry Head: Atraumatic, Normacephalic Eye(s): bilateral: Normal Inspection, EOMI Nose: Normal Oral Mucosa: Moist Neck: Normal ROM, Supple Chest: Symmetrical, No Deformity, No Tenderness Cardiovascular: Rhythm Regular Respiratory: Normal Breath Sounds, No Rales, No Rhonchi, No Wheezing Gastrointestinal/Abdominal: Soft, No Tenderness, No Guarding, No Rebound Male Genital: Testicular Tenderness (left), No Testicular Swelling, No Circumcised, Other (1cm area of induration to left scrotum. no fluctuance, warmth or erythema. ) Extremity: Normal ROM, Capillary Refill (less than 2 seconds ) Neurological/Psych: Oriented x3, Normal Speech, Normal Cognition Gait: Steady ED Course And Treatment - Laboratory Results Result Diagrams: 05/20/17 13:35 05/20/17 13:35 O2 Sat by Pulse Oximetry: 99 (on RA) Pulse Ox Interpretation: Normal - CT Scan/US Testicular US Other Rad Studies (CT/US): Interpreted By Me, Read By Radiologist, Radiology Report Reviewed CT/US Interpretation: HISTORY: L pain. TECHNIQUE: Realtime sonography through the scrotum with color and doppler flow. COMPARISON: None Available. FINDINGS: RIGHT TESTICLE: Measures 2.3 x 3.3 x 5.4 cm. Normal echotexture and flow.Incidental finding(s): 3 mm cyst. RIGHT EPIDIDYMIS: Epididymal head measures 1 x 1.3 cm. Grossly unremarkable appearance with normal flow. LEFT TESTICLE: Measures 2.4 x 3.5 x 4.8 cm. Normal echotexture and flow. LEFT EPIDIDYMIS: Epididymal head measures 1.0 x 1.4 cm. Grossly unremarkable appearance with normal flow. HYDROCELE: Small, bilateral. VARICOCELE: Slightly prominent veins, do not constitute varicocele. OTHER FINDINGS: None. IMPRESSION: No acute findings related to/accounting for the clinical presentation. Additional benign and/or incidental findings described above. Progress Note: Bloodwork, Urinalysis, CT A/P, Testicular US, Chlamydia/GC test ordered. Morphine IVP and IV Fluids administered. On re-evaluation, pt notes pain persists. Dilaudid ordered. BP at 90s/60s notes. PT evaluated, asymtpomatic. Notes pain improved. No dizziness. Pt states that he "always runs low.". Pt afebrile, tolerating PO. Given results of US and CT and instructed strict follow up with urology. Instructed to return to ER if symtpoms persist or worsen. Disposition - Disposition Referrals: John Paul Crespo MD [Staff Provider] - Disposition: HOME/ ROUTINE Disposition Time: 16:38 Condition: STABLE Additional Instructions: Follow up with primary medical doctor in 1-3 days without fail for further evaluation. Take medications as prescribed. Return to the emergency department at any time if symptoms persist or worsen. Prescriptions: Ciprofloxacin [Cipro] 1 tab PO BID #14 tab Naproxen [Naprosyn] 1 tab PO BID PRN #20 tab PRN Reason: Pain oxyCODONE/Acetaminophen [Percocet 5/325 mg Tab] 1 tab PO QID PRN #16 tab PRN Reason: Pain Tamsulosin [Flomax] 0.4 mg PO DAILY #10 cap Instructions: Kidney Stones (ED) Forms: [facility] [employer] [facility] (Serbian) - Clinical Impression Clinical Impression: Nephrolithiasis, Renal colic on left side - PA / STAFF COUNSELOR / Resident Statement MD/DO has reviewed & agrees with the documentation as recorded. - Scribe Statement The provider has reviewed the documentation as recorded by the Scribe (Whitney Gudino) All medical record entries made by the Scribe were at my direction and personally dictated by me. I have reviewed the chart and agree that the record accurately reflects my personal performance of the history, physical exam, medical decision making, and the department course for this patient. I have also personally directed, reviewed, and agree with the discharge instructions and disposition.
--- NOTE | 2017-05-20 15:36 | CT ---
PROCEDURE: CT Abdomen and Pelvis without intravenous contrast HISTORY: L pain COMPARISON: Comparison is made with the previous study dated 03/09/2016 TECHNIQUE: Axial and reformatted coronal and sagittal CT images of the abdomen and pelvis were obtained without IV or oral contrast administration.. Contrast Dose: 0 Radiation dose: Total exam DLP = 586.23 mGy-cm. This CT exam was performed using one or more of the following dose reduction techniques: Automated exposure control, adjustment of the mA and/or kV according to patient size, and/or use of iterative reconstruction technique. FINDINGS: LOWER THORAX: Again noted is pleural based nodule at the right lower lung measures 6 millimeter which has not significantly changed since the previous exam. No evidence of pneumonia or pleural effusion. LIVER: Mild hepatomegaly is again noted. No overt mass lesion in the liver noted in this noncontrast study. . No gross ductal dilatation. GALLBLADDER AND BILE DUCTS: Unremarkable. PANCREAS: Unremarkable. No gross lesion or ductal dilatation. SPLEEN: Unremarkable. ADRENALS: Unremarkable. No mass. KIDNEYS AND URETERS: There are 2 adjacent nonobstructing renal calculi at the lower pole of the left kidney with the largest calculus measures 4.3 millimeter. There is 2 millimeter nonobstructing calculus at the upper pole of the right kidney. There is mild left hydronephrosis and hydroureter up to left UV junction. 4.5 millimeter calculus seen at or adjacent to the left UV junction likely just passed to the bladder from the collecting system of the left kidney. VASCULATURE: Unremarkable. No aortic aneurysm. BOWEL: Unremarkable. No obstruction. No gross mural thickening. The patient is status post prior gastric surgery. APPENDIX: No evidence of appendicitis. PERITONEUM: Unremarkable. No free fluid. No free air. LYMPH NODES: Unremarkable. No enlarged lymph nodes. BLADDER: Unremarkable. REPRODUCTIVE: Unremarkable. BONES: No acute fracture. OTHER FINDINGS: None. IMPRESSION: Mild left hydronephrosis and hydroureter up to the UV junction. 4.5 millimeter calculus seen at the left UV junction or just passed to the bladder. Bilateral nonobstructing renal calculi more prominent at the lower pole of the left kidney as described above. Otherwise no significant interval change since the previous exam.
[2017-05-20] MEDS ORDERED: HYDROmorphone 0.5 mg/0.5 ml ISec IVP STA (15:40)
[2017-05-20 15:47] VITALS: PULSE 52; TEMP 98
[2017-05-20] MEDS ORDERED: HYDROmorphone 0.5 mg/0.5 ml ISec ONE (15:58)
[2017-05-20 16:28] VITALS: BP 114/71
[2017-05-20 16:39] VITALS: O2SAT 99
== END 2017-05-20 17:32 | disposition home or self-care (01) ==
LOC: C.ER 12:45
DX: N20.0 Calculus of kidney (principal); Z87.442 Personal history of urinary calculi
CPT/HCPCS: 74176; 76870; 80053; 81001; 85025; 85610; 85730; 87086; 87491; 87591; 96361; 96374; 96375; 99285; J1170; J1885; J2270; J7040

== ENCOUNTER 2017-07-20 13:06 | Emergency (ER) | payer MEDICAID ==
[2017-07-20 13:07] VITALS: BMI 25.0
[2017-07-20 13:57] VITALS: RESP 18; TEMP 98
--- NOTE | 2017-07-20 14:31 | C.PDOC ---
History Of Present Illness 42 y/o male,with history of diabetes, HTN, and migraines, presents to the ER complaining of a headache which has been present for the past 3 days. Patient states that he has pain in the occipital area which radiates to the frontal area. Patient reports that the pain had a gradual onset and is constant and describes it as throbbing. He notes that he has decreased vision in his left eye and weakness on the left side of his body. He took Ibuprofen 800mg which provided no relief. He has seen a neurologist and he was prescribed Imitrex in the past but he no longer has any medication. He denies chest pain, SOB, fever, and chills or neck pain. He does state that he has had nasal congestion with a thick clear nasal discharge associated with sinus pressure. Time Seen by Provider: 07/20/17 14:04 Chief Complaint (Nursing): Headache History Per: Patient History/Exam Limitations: no limitations Onset/Duration Of Symptoms: Days Current Symptoms Are (Timing): Still Present Severity: Moderate Past Medical History Reviewed: Historical Data, Nursing Documentation, Vital Signs Vital Signs: Last Vital Signs Temp 98.0 F 07/20/17 13:52 Pulse 66 07/20/17 13:52 Resp 18 07/20/17 13:52 BP 100/66 07/20/17 13:52 Pulse Ox 100 07/20/17 15:31 - Medical History PMH: Anxiety, Asthma, Bipolar Disorder, Bronchitis, CHF, Depression, Diabetes, HTN, Hypercholesterolemia, Kidney Stones, Migraine, Chronic Kidney Disease, Sleep Apnea (bipap) Denies: COPD (\) Surgical History: Back Surgery, Endoscopy - [facility] Procedures ENDOSC POLYPECTOMY OF LG INTEST (02/14/15) HIGHLY SELECT VAGOTOMY (01/20/15) LAPAROSCOPIC GASTROENTEROSTOMY (01/20/15) OTHER GASTROSCOPY (01/20/15) OTHER SKIN & SUBQ I D (04/19/14) Family History: States: No Known Family Hx - Social History Hx Tobacco Use: Yes Hx Alcohol Use: No Hx Substance Use: Yes (marijuana socially) - Immunization History Hx Tetanus Toxoid Vaccination: Yes Hx Influenza Vaccination: Yes Hx Pneumococcal Vaccination: No Review Of Systems Except As Marked, All Systems Reviewed And Found Negative. Constitutional: Negative for: Fever, Chills Cardiovascular: Negative for: Chest Pain Respiratory: Negative for: Shortness of Breath Neurological: Positive for: Headache Physical Exam - Physical Exam Appears: Non-toxic, Other (patient talking on the phone which he is holding in his left hand) Skin: Normal Color, Warm Head: Atraumatic, Normacephalic, Other (no facial droop) Eye(s): bilateral: Normal Inspection, EOMI Nose: Normal Oral Mucosa: Moist Neck: Supple Chest: Symmetrical Cardiovascular: Rhythm Regular Respiratory: Normal Breath Sounds, No Accessory Muscle Use, No Rales, No Rhonchi , No Wheezing Extremity: Normal ROM Neurological/Psych: Oriented x3, Normal Speech, Normal Cranial Nerves, Normal Motor, Normal Sensation Additional Physical Exam Comments: 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 : [id number]. Patient Name / ID : FRANCO GODFREY / [id number]. Exam Date : 07/20/2017 14:57:40 ( Approved ). Study Comment : Sex / Age : M / 42Y. Creator : Laurie Palma MD. Dictator : Laurie Palma MD. Medical Insurance Coder : Reflesher : Laurie Palma MD. Approver2 : Report Date : 07/20/2017 15:21:35. My Comment : . PROCEDURE: CT HEAD WITHOUT CONTRAST. HISTORY: Headache. COMPARISON: Noncontrast head CT performed 01/06/16. TECHNIQUE: Axial computed tomography images were obtained through the head/brain without intravenous contrast. Radiation dose: Total exam DLP = 935.14 mGy-cm. This CT exam was performed using one or more of the following dose reduction techniques: Automated exposure control, adjustment of the mA and/or kV according to patient size, and/ or use of iterative reconstruction technique. FINDINGS: Streak artifact obscures evaluation of the skullbase. HEMORRHAGE: No intracranial hemorrhage. BRAIN: No mass effect or edema. The huber-white matter differentiation appears intact. Please note that MRI with diffusion imaging is more sensitive in the detection of acute ischemic event. VENTRICLES: No hydrocephalus. CALVARIUM: Unremarkable. PARANASAL SINUSES: Unremarkable as visualized. No significant inflammatory changes. MASTOID AIR CELLS: Unremarkable as visualized. No inflammatory changes. OTHER FINDINGS: None. IMPRESSION: No acute intracranial pathology identified. Reevaluation Time: 16:41 Reassessment Condition: Improved (Headache improved and vision is starting to clear.) Medical Decision Making Medical Decision Making: Plan: --Labs --UA --CT-Head Scan --Reglan IV --Toradol IV Disposition Counseled Patient/Family Regarding: Studies Performed, Diagnosis, Need For Followup, Rx Given - Disposition Referrals: Nicole Palma MD [Medical Doctor] - Disposition: HOME/ ROUTINE Disposition Time: 16:41 Condition: IMPROVED Additional Instructions: Take OTC Mucinex, Sudafed and Flonase for nasal congestion as needed. Prescriptions: Methylprednisolone [Medrol Dose Pack (21 tabs)] 4 mg PO DAILY #21 mg Instructions: Migraine Headache (DC) Forms: [facility] (Swedish) - Clinical Impression Clinical Impression: Migraine - Scribe Statement The provider has reviewed the documentation as recorded by the Melanie Bhatt Provider Attestation: All medical record entries made by the Prabhakaribfeliciano were at my direction and personally dictated by me. I have reviewed the chart and agree that the record accurately reflects my personal performance of the history, physical exam, medical decision making, and the department course for this patient. I have also personally directed, reviewed, and agree with the discharge instructions and disposition.
[2017-07-20 14:50] LABS: BASO % 0.5 % (0.0-2.0); EOS # 0.2 K/uL (0.0-0.7); EOS % 3.2 % (0.0-4.0); HEMOGLOBIN 13.3 g/dL (12.0-18.0); LYMPH # 2.5 K/uL (1.0-4.3); LYMPH % 34.9 % (20.0-40.0); MEAN CELL VOLUME 89.5 fL (80.0-94.0); MEAN CORPUSCULAR HEMOGLOBIN 31.1 pg (27.0-31.0); MEAN CORPUSCULAR HGB CONC 34.8 g/dL (33.0-37.0); MEAN PLATELET VOLUME 7.6 fL (7.2-11.7); MONO # 0.7 K/uL (0.0-0.8); MONO % 9.2 % (0.0-10.0); NEUT # 3.8 K/uL (1.8-7.0); NEUT % 52.2 % (50.0-75.0); RBC 4.27 Mil/uL (4.40-5.90); RED CELL DISTRIBUTION WIDTH 13.8 % (11.5-14.5); WHITE BLOOD COUNT 7.3 K/uL (4.8-10.8)
[2017-07-20 14:59] LABS: ALB/GLOB RATIO 1.3 (1.0-2.1); ALBUMIN 3.8 g/dL (3.5-5.0); ALT/SGPT 42 U/L (21-72); AST/SGOT 35 U/L (17-59); BLOOD UREA NITROGEN 14 mg/dL (9-20); CALCIUM 8.6 mg/dl (8.6-10.4); GFR AFRICAN-AMERICAN > 60; GFR NON-AFRICAN AMERICAN > 60
--- NOTE | 2017-07-20 15:23 | CT ---
PROCEDURE: CT HEAD WITHOUT CONTRAST. HISTORY: Headache COMPARISON: Noncontrast head CT performed 01/06/16 TECHNIQUE: Axial computed tomography images were obtained through the head/brain without intravenous contrast. Radiation dose: Total exam DLP = 935.14 mGy-cm. This CT exam was performed using one or more of the following dose reduction techniques: Automated exposure control, adjustment of the mA and/or kV according to patient size, and/or use of iterative reconstruction technique. FINDINGS: Streak artifact obscures evaluation of the skullbase. HEMORRHAGE: No intracranial hemorrhage. BRAIN: No mass effect or edema. The huber-white matter differentiation appears intact. Please note that MRI with diffusion imaging is more sensitive in the detection of acute ischemic event. VENTRICLES: No hydrocephalus. CALVARIUM: Unremarkable. PARANASAL SINUSES: Unremarkable as visualized. No significant inflammatory changes. MASTOID AIR CELLS: Unremarkable as visualized. No inflammatory changes. OTHER FINDINGS: None. IMPRESSION: No acute intracranial pathology identified.
[2017-07-20 16:51] LABS: URINE BILIRUBIN NEGATIVE (NEGATIVE); URINE BLOOD NEGATIVE (NEGATIVE); URINE CLARITY Turbid (Clear); URINE COLOR Yellow (YELLOW); URINE GLUCOSE (UA) NORMAL (Normal); URINE LEUKOCYTE ESTERASE NEG Leu/uL (Negative); URINE NITRATE NEGATIVE (NEGATIVE); URINE PROTEIN NEGATIVE (NEGATIVE)
[2017-07-20 16:52] LABS: URINE AMORPHOUS SEDIMENT LARGE /ul (<OCC)
[2017-07-20 16:58] VITALS: BP 91/57; PULSE 60; O2SAT 98
[2017-07-20 17:12] LABS: BARBITURATES, UR NEGATIVE (NEGATIVE); BENZODIAZEPINES, UR NEGATIVE (NEGATIVE); OPIATES, UR NEGATIVE (NEGATIVE); PHENCYCLIDINE, UR NEGATIVE (NEGATIVE)
== END 2017-07-20 18:11 | disposition home or self-care (01) ==
LOC: C.ER 13:06
DX: G43.909 Migraine, unspecified, not intractable, without status migrainosus (principal); E11.9 Type 2 diabetes mellitus without complications; I12.9 Hypertensive chronic kidney disease with stage 1 through stage 4 chronic kidney disease, or unspecified chronic kidney disease; N18.9 Chronic kidney disease, unspecified; I50.9 Heart failure, unspecified; E78.00 Pure hypercholesterolemia, unspecified
CPT/HCPCS: 70450; 80053; 80324; 80345; 80346; 80349; 80353; 80358; 80361; 81001; 83992; 85025; 96374; 96375; 99285; J1885; J2765

== ENCOUNTER 2017-11-29 12:24 | Emergency (ER) | payer MEDICAID ==
[2017-11-29 12:24] VITALS: BMI 25.0
[2017-11-29 12:38] VITALS: RESP 18
[2017-11-29] MEDS ORDERED: Sodium Chloride 0.9% 1,000 ML IV ONE (13:30)
[2017-11-29] MEDS ORDERED: Sodium Chloride 0.9% 1,000 ML ONE (14:17)
[2017-11-29 14:31] LABS: BASO % 0.6 % (0.0-2.0); EOS # 0.2 K/uL (0.0-0.7); EOS % 2.5 % (0.0-4.0); LYMPH # 2.5 K/uL (1.0-4.3); LYMPH % 37.7 % (20.0-40.0); MEAN CELL VOLUME 89.9 fL (80.0-94.0); MEAN CORPUSCULAR HEMOGLOBIN 31.4 pg (27.0-31.0); MEAN CORPUSCULAR HGB CONC 34.9 g/dL (33.0-37.0); MEAN PLATELET VOLUME 7.7 fL (7.2-11.7); MONO # 0.5 K/uL (0.0-0.8); NEUT # 3.4 K/uL (1.8-7.0); NEUT % 52.2 % (50.0-75.0); RBC 4.45 Mil/uL (4.40-5.90); RED CELL DISTRIBUTION WIDTH 13.6 % (11.5-14.5); WHITE BLOOD COUNT 6.5 K/uL (4.8-10.8)
[2017-11-29 14:34] LABS: URINE BACTERIA RARE (<OCC); URINE BILIRUBIN NEGATIVE (NEGATIVE); URINE BLOOD NEGATIVE (NEGATIVE); URINE CLARITY Clear (Clear); URINE COLOR Yellow (YELLOW); URINE GLUCOSE (UA) NORMAL (Normal); URINE LEUKOCYTE ESTERASE NEG Leu/uL (Negative); URINE PROTEIN NEGATIVE (NEGATIVE)
[2017-11-29 14:44] LABS: ALB/GLOB RATIO 1.6 (1.0-2.1); ALBUMIN 4.2 g/dL (3.5-5.0); ALT/SGPT 30 U/L (21-72); AST/SGOT 30 U/L (17-59); BLOOD UREA NITROGEN 15 mg/dL (9-20); CALCIUM 9.1 mg/dl (8.6-10.4); GFR AFRICAN-AMERICAN > 60; GFR NON-AFRICAN AMERICAN > 60
--- NOTE | 2017-11-29 14:53 | C.PDOC ---
History Of Present Illness 42-year-old male, presents to the emegrency department with complaints of blurred vision ongoing for a few days. Patient has been evaluated before for similar changes in vision. He denies any headache. States he took medication yesterday with improvement. He denies nausea/vomiting, numbness/weakness, facial droop/slurred speech, or any other associated symptoms. No other complaints at this vinnie Time Seen by Provider: 11/29/17 13:06 Chief Complaint (Nursing): Eye Problem History Per: Patient History/Exam Limitations: no limitations Current Symptoms Are (Timing): Still Present Severity: Moderate Past Medical History Reviewed: Historical Data, Nursing Documentation, Vital Signs Vital Signs: Last Vital Signs Temp 98.5 F 11/29/17 12:34 Pulse 84 11/29/17 12:34 Resp 18 11/29/17 12:34 BP 104/64 11/29/17 12:34 Pulse Ox 97 11/29/17 15:20 - Medical History PMH: Anxiety, Asthma, Back Problems, Bipolar Disorder, Bronchitis, CHF, Depression, Diabetes, HTN, Hypercholesterolemia, Kidney Stones, Migraine, Chronic Kidney Disease, Sleep Apnea (bipap) Comment Only: COPD (\) Surgical History: Back Surgery, Endoscopy - [facility] Procedures ENDOSC POLYPECTOMY OF LG INTEST (02/14/15) HIGHLY SELECT VAGOTOMY (01/20/15) LAPAROSCOPIC GASTROENTEROSTOMY (01/20/15) OTHER GASTROSCOPY (01/20/15) OTHER SKIN & SUBQ I D (04/19/14) Family History: States: No Known Family Hx - Social History Hx Tobacco Use: Yes Hx Alcohol Use: No Hx Substance Use: No - Immunization History Hx Tetanus Toxoid Vaccination: Yes Hx Influenza Vaccination: Yes Hx Pneumococcal Vaccination: No Review Of Systems Constitutional: Negative for: Fever, Chills Eyes: Positive for: Vision Change. Negative for: Pain Cardiovascular: Negative for: Chest Pain, Palpitations Respiratory: Negative for: Shortness of Breath Gastrointestinal: Negative for: Nausea, Vomiting Musculoskeletal: Negative for: Neck Pain Skin: Negative for: Rash Neurological: Negative for: Weakness, Numbness, Headache, Dizziness Physical Exam - Physical Exam Appears: Non-toxic, No Acute Distress Skin: Normal Color, Warm, Dry Head: Atraumatic, Normacephalic Eye(s): bilateral: Normal Inspection, PERRL, EOMI Nose: Normal Oral Mucosa: Moist Lips: Normal Appearing Neck: Normal ROM Cardiovascular: Rhythm Regular, No Murmur Respiratory: Normal Breath Sounds, No Accessory Muscle Use Back: Normal Inspection Extremity: Normal ROM, No Deformity, No Swelling Neurological/Psych: Oriented x3, Normal Speech ED Course And Treatment - Laboratory Results Result Diagrams: 11/29/17 14:28 11/29/17 14:28 Lab Interpretation: Normal (gucose normal) ECG: Interpreted By Me ECG Rhythm: Sinus Rhythm ECG Interpretation: Normal Rate From EC O2 Sat by Pulse Oximetry: 97 (RA) Pulse Ox Interpretation: Normal Reevaluation Time: 15:18 Reassessment Condition: Improved Medical Decision Making Medical Decision Making: strange lateral blurry vision for a few days. no acute vision changes noted on exam similar presentation 07/10 with normal head/sinus CT's, defer repeat today no [facility] to [facility] ag[facility] w/u now. Consider underlying psych/substance issues as causative already under care of Neuro Disposition Doctor Will See Patient In The: Office Counseled Patient/Family Regarding: Studies Performed, Diagnosis - Disposition Referrals: Nicole Palma MD [Medical Doctor] - Disposition: HOME/ ROUTINE Disposition Time: 15:19 Condition: GOOD Additional Instructions: continue motrin/tylenol as needed keep well hydrated follow-up with your PMD or Neurologist as needed normal labs today Forms: General Discharge Instructions, [facility] (Occitan) - Clinical Impression Clinical Impression: Blurry vision - Scribe Statement The provider has reviewed the documentation as recorded by the Scribe (Jasper Benavides) All medical record entries made by the Scribe were at my direction and personally dictated by me. I have reviewed the chart and agree that the record accurately reflects my personal performance of the history, physical exam, medical decision making, and the department course for this patient. I have also personally directed, reviewed, and agree with the discharge instructions and disposition.
[2017-11-29 14:58] LABS: BARBITURATES, UR NEGATIVE (NEGATIVE); BENZODIAZEPINES, UR NEGATIVE (NEGATIVE); PHENCYCLIDINE, UR NEGATIVE (NEGATIVE)
[2017-11-29 15:18] LABS: OPIATES, UR POSITIVE (NEGATIVE)
[2017-11-29 15:51] VITALS: BP 100/58; PULSE 74; TEMP 98; O2SAT 98
--- NOTE | 2017-12-01 12:22 | CARD ---
APPROVED REPORT Date of service: 11/29/2017 EKG Measurement Heart [id number] CO [id number] [id number] <Conclusion> Sinus bradycardia Otherwise normal ECG
== END 2017-11-29 15:50 | disposition home or self-care (01) ==
LOC: C.ER 12:24
DX: H53.8 Other visual disturbances (principal); I13.0 Hypertensive heart and chronic kidney disease with heart failure and stage 1 through stage 4 chronic kidney disease, or unspecified chronic kidney disease; I50.9 Heart failure, unspecified; E11.22 Type 2 diabetes mellitus with diabetic chronic kidney disease; N18.9 Chronic kidney disease, unspecified; F17.210 Nicotine dependence, cigarettes, uncomplicated
CPT/HCPCS: 80053; 80320; 80324; 80345; 80346; 80349; 80353; 80358; 80361; 81001; 83992; 85025; 93005; 96361; 96374; 99283; J1885; J7030

== ENCOUNTER 2017-12-26 08:33 | Emergency (ER) | payer MEDICAID ==
[2017-12-26 08:34] VITALS: BMI 25.0
[2017-12-26 08:38] VITALS: TEMP 97.8
[2017-12-26] MEDS ORDERED: Oxycodone/Acetaminophen 5/325 mg Tab PO STA (08:42)
[2017-12-26] MEDS ORDERED: Oxycodone/Acetaminophen 5/325 mg Tab ONE (08:56)
--- NOTE | 2017-12-26 09:25 | RAD ---
Date of service: 12/26/2017 PROCEDURE: Right Thumb radiographs. HISTORY: crush injury COMPARISON: None. TECHNIQUE: AP radiograph of the right hand, as well as spot oblique and lateral images of thumb were obtained. FINDINGS: RIGHT THUMB: Normal right thumb, without fracture or focal lesion. Remainder of the right hand (as seen on the AP view) grossly unremarkable. JOINTS: Normal. SOFT TISSUES: Normal. OTHER FINDINGS: None. IMPRESSION: Normal right thumb radiographs.
--- NOTE | 2017-12-26 09:52 | C.PDOC ---
History Of Present Illness 42 y/o male presents to the ED for evaluation of right thumb injury sustained this morning. States that he accidentally shut his right thumb in the car door and the door locked, and they were unable to find the keys and open it for several minutes. Patient now reports pain to the right thumb. Otherwise denies any numbness, weakness, or tingling. Tetanus is up to date. Time Seen by Provider: 12/26/17 08:41 Chief Complaint (Nursing): Finger,Hand,&Wrist History Per: Patient History/Exam Limitations: no limitations Onset/Duration Of Symptoms: Hrs Current Symptoms Are (Timing): Still Present Past Medical History Reviewed: Historical Data, Nursing Documentation, Vital Signs Vital Signs: Last Vital Signs Temp 97.8 F 12/26/17 09:59 Pulse 60 12/26/17 09:59 Resp 16 12/26/17 09:59 BP 107/68 12/26/17 09:59 Pulse Ox 98 12/26/17 09:59 - Medical History PMH: Anxiety, Asthma, Back Problems, Bipolar Disorder, Bronchitis, CHF, Depression, Diabetes, HTN, Hypercholesterolemia, Kidney Stones, Migraine, Chronic Kidney Disease, Sleep Apnea (bipap) Comment Only: COPD (\) Surgical History: Back Surgery, Endoscopy - [facility] Procedures ENDOSC POLYPECTOMY OF LG INTEST (02/14/15) HIGHLY SELECT VAGOTOMY (01/20/15) LAPAROSCOPIC GASTROENTEROSTOMY (01/20/15) OTHER GASTROSCOPY (01/20/15) OTHER SKIN & SUBQ I D (04/19/14) Family History: States: Unknown Family Hx - Social History Hx Tobacco Use: Yes Hx Alcohol Use: No Hx Substance Use: No - Immunization History Hx Tetanus Toxoid Vaccination: Yes Hx Influenza Vaccination: Yes Hx Pneumococcal Vaccination: No Review Of Systems Except As Marked, All Systems Reviewed And Found Negative. Constitutional: Negative for: Fever Musculoskeletal: Positive for: Other (right thumb pain) Skin: Negative for: Lesions Neurological: Negative for: Weakness, Numbness, Incoordination Physical Exam - Physical Exam Appears: Non-toxic, No Acute Distress Skin: Warm, Dry, No Rash Head: Atraumatic, Normacephalic Eye(s): bilateral: Normal Inspection Oral Mucosa: Moist Neck: Normal ROM Chest: Symmetrical Extremity: Normal ROM, Tenderness (to distal phalanx of right 1st digit), Capillary Refill (less than 2sec), Swelling (to right thumb), Other (20% subungual hematoma to right thumb, nail is intact, no lacerations or open wounds ) Pulses: Left Radial: Normal, Right Radial: Normal Neurological/Psych: Oriented x3, Normal Speech, Normal Motor, Normal Sensation Gait: Steady ED Course And Treatment O2 Sat by Pulse Oximetry: 100 (RA) Pulse Ox Interpretation: Normal - Other Rad x-ray right thumb X-Ray: Viewed By Me, Read By Radiologist Interpretation: Accession No. : [id number]. Patient Name / ID : FRANCO GODFREY / [id number]. Exam Date : 12/26/2017 08:44:31 ( Approved ). Study Comment : Sex / Age : M / 42Y. Creator : Bob Chapman MD. Dictator : Bob Chapman MD. Rn Sane : Bank Reconciliator : Bob Chapman MD. Approver2 : Report Date : 12/26/2017 09:24:08. My Comment : . Date of service: 12/26/2017. PROCEDURE: Right Thumb radiographs. HISTORY: crush injury. COMPARISON: None. TECHNIQUE: AP radiograph of the right hand, as well as spot oblique and lateral images of thumb were obtained. FINDINGS: RIGHT THUMB: Normal right thumb, without fracture or focal lesion. Remainder of the right hand (as seen on the AP view) grossly unremarkable. JOINTS: Normal. SOFT TISSUES: Normal. OTHER FINDINGS: None. IMPRESSION: Normal right thumb radiographs. Progress Note: X-rays taken of right thumb, and are negative. Percocet PO given for pain control. Finger was cleaned with normal saline. Ice pack applied. Finger splint applied to right 1st digit by CP and checked by me. Advised patient to continue icing and take Motrin PRN for pain. Counseled regarding the importance of follow up with hand specialist for further evaluation. Disposition Counseled Patient/Family Regarding: Studies Performed, Diagnosis, Need For Followup, Rx Given - Disposition Referrals: Tyree Isaac MD [Staff Provider] - Disposition: HOME/ ROUTINE Disposition Time: 09:50 Condition: STABLE Additional Instructions: Follow up with hand specialist within 1-2 days. Return to ED if feel worse. 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 - Scribe Statement The provider has reviewed the documentation as recorded by the Scribe (Kierra Calvin) All medical record entries made by the Scribe were at my direction and personally dictated by me. I have reviewed the chart and agree that the record accurately reflects my personal performance of the history, physical exam, medical decision making, and the department course for this patient. I have also personally directed, reviewed, and agree with the discharge instructions and disposition.
[2017-12-26 10:00] VITALS: BP 107/68; PULSE 60; RESP 16
[2017-12-26 10:55] VITALS: O2SAT 100
== END 2017-12-26 10:11 | disposition home or self-care (01) ==
LOC: C.ER 08:33
DX: S60.011A Contusion of right thumb without damage to nail, initial encounter (principal); W23.0XXA Caught, crushed, jammed, or pinched between moving objects, initial encounter

== ENCOUNTER 2018-03-08 14:11 | Emergency (ER) | payer MEDICAID ==
[2018-03-08 14:11] VITALS: BMI 25.0
[2018-03-08 14:26] VITALS: RESP 18; O2SAT 98
[2018-03-08] MEDS ORDERED: Albuterol-Ipratrop 3 mg / 0.5 (3 ml) UD ONE ×2 (15:04→15:21)
[2018-03-08 15:16] LABS: BASO % 0.6 % (0.0-2.0); EOS # 0.2 K/uL (0.0-0.7); EOS % 2.8 % (0.0-4.0); HEMOGLOBIN 14.4 g/dL (12.0-18.0); LYMPH # 2.1 K/uL (1.0-4.3); LYMPH % 29.6 % (20.0-40.0); MEAN CELL VOLUME 89.2 fL (80.0-94.0); MEAN CORPUSCULAR HEMOGLOBIN 30.6 pg (27.0-31.0); MEAN CORPUSCULAR HGB CONC 34.3 g/dL (33.0-37.0); MEAN PLATELET VOLUME 7.7 fL (7.2-11.7); MONO # 0.7 K/uL (0.0-0.8); MONO % 9.2 % (0.0-10.0); NEUT # 4.1 K/uL (1.8-7.0); NEUT % 57.8 % (50.0-75.0); NRBC % 0.1 % (0.0-2.0); RBC 4.72 Mil/uL (4.40-5.90); RED CELL DISTRIBUTION WIDTH 13.6 % (11.5-14.5); WHITE BLOOD COUNT 7.1 K/uL (4.8-10.8)
[2018-03-08] MEDS: Albuterol-Ipratrop 3 mg / 0.5 (3 ml) UD IH SCH (15:26)
[2018-03-08 15:28] LABS: ALB/GLOB RATIO 1.7 (1.0-2.1); ALBUMIN 4.5 g/dL (3.5-5.0); ALT/SGPT 28 U/L (21-72); AST/SGOT 26 U/L (17-59); BLOOD UREA NITROGEN 16 mg/dL (9-20); CALCIUM 9.2 mg/dl (8.6-10.4); GFR NON-AFRICAN AMERICAN > 60
--- NOTE | 2018-03-08 15:37 | C.PDOC ---
History Of Present Illness 42 year old male with a history of asthma presents to the ED for evaluation of sore throat and cough for 5 days. Patient reports subjective fever, malise, and coughing brown phlegm. He notes prior visit with PMD Dr. Palma who prescribed him Z-pack course of 5 days; he did not have any x-rays done, compliant with medications. Admits to smoking 3 cigarettes a day. Denies chills, nausea, vomiting, neck pain, and any other associated symptoms. Time Seen by Provider: 03/08/18 14:43 Chief Complaint (Nursing): Flu-like Symptoms History Per: Patient History/Exam Limitations: no limitations Onset/Duration Of Symptoms: Days Current Symptoms Are (Timing): Still Present Associated Symptoms: Fever, Sore Throat, Cough. denies: Chills Past Medical History Reviewed: Historical Data, Nursing Documentation, Vital Signs Vital Signs: Last Vital Signs Temp 99.2 F 03/08/18 14:21 Pulse 70 03/08/18 14:21 Resp 18 03/08/18 14:21 BP 101/66 03/08/18 14:21 Pulse Ox 98 03/08/18 14:21 - Medical History PMH: Anxiety, Asthma, Back Problems, Bipolar Disorder, Bronchitis, CHF, Depression, Diabetes, HTN, Hypercholesterolemia, Kidney Stones, Migraine, Chronic Kidney Disease, Sleep Apnea (bipap) Comment Only: COPD (\) Surgical History: Back Surgery, Endoscopy - [facility] Procedures ENDOSC POLYPECTOMY OF LG INTEST (02/14/15) HIGHLY SELECT VAGOTOMY (01/20/15) LAPAROSCOPIC GASTROENTEROSTOMY (01/20/15) OTHER GASTROSCOPY (01/20/15) OTHER SKIN & SUBQ I D (04/19/14) Family History: States: Unknown Family Hx - Social History Hx Tobacco Use: Yes Hx Alcohol Use: No Hx Substance Use: Yes - Immunization History Hx Tetanus Toxoid Vaccination: No Hx Influenza Vaccination: No Hx Pneumococcal Vaccination: No Review Of Systems Constitutional: Positive for: Fever (subjective.). Negative for: Chills Respiratory: Positive for: Cough (with brown phlegm. ), Shortness of Breath Gastrointestinal: Negative for: Nausea, Vomiting Musculoskeletal: Negative for: Neck Pain Neurological: Negative for: Headache, Dizziness Physical Exam - Physical Exam Appears: Non-toxic, No Acute Distress Skin: Normal Color, Warm, Dry Head: Atraumatic, Normacephalic Eye(s): bilateral: Normal Inspection Ear(s): Bilateral: Normal Nose: Normal, No Flaring Oral Mucosa: Moist Throat: Normal, No Erythema, No Exudate, No Drooling, No Mass Neck: Normal ROM, Supple Chest: Symmetrical, No Tenderness Cardiovascular: Rhythm Regular, No Murmur Respiratory: No Accessory Muscle Use, No Rales, No Rhonchi, Wheezing Extremity: Bilateral: Atraumatic, Normal Color And Temperature, Normal ROM Neurological/Psych: Oriented x3, Normal Speech Gait: Steady ED Course And Treatment - Laboratory Results Result Diagrams: 03/08/18 15:13 03/08/18 15:13 Lab Interpretation: No Acute Changes O2 Sat by Pulse Oximetry: 98 (RA) Pulse Ox Interpretation: Normal - Other Rad CXR X-Ray: Viewed By Me, Read By Radiologist Interpretation: FINDINGS: LUNGS: No focal consolidation. Please note that chest x-ray has limited sensitivity for the detection of pulmonary masses. PLEURA: No significant pleural effusion identified. No definite pneumothorax . CARDIOVASCULAR: Heart size appears within normal limits. No significant atherosclerotic calcification identified. OSSEOUS STRUCTURES: Degenerative changes. VISUALIZED UPPER ABDOMEN: Unremarkable. OTHER FINDINGS: None. IMPRESSION: No acute findings identified. Medical Decision Making Medical Decision Making: Impression: cough, wheeze Plan: --Labs --CXR --Albuterol/Ipratropium --Methylprednisolone Progress: labs reviewed and unremarkable. CXR shows no active disease. Patient re-evaluated and reports feeling better. Lung sounds have now improved and breath sounds equal. Patient is ready for discharge and stable. Flatbed Stitcher patient on smoking cessation and will give Rx for prednisone and inhaler Disposition Counseled Patient/Family Regarding: Diagnosis, Need For Followup, Rx Given - Disposition Referrals: Nicole Palma MD [Medical Doctor] - Disposition: HOME/ ROUTINE Disposition Time: 16:30 Condition: GOOD Additional Instructions: Follow up with your primary medical doctor or clinic in 2-5 days for further evaluation. Take medications as prescribed. Return to the emergency department at any time if symptoms persist or worsen. Prescriptions: Albuterol HFA [Ventolin HFA 90 mcg/actuation (8 g)] 1 puff IH Q4 #1 puff Benzonatate [Tessalon Perles] 100 mg PO TID #30 sgl Methylprednisolone [Medrol Dose Pack (21 tabs)] 4 mg PO DAILY #21 mg Instructions: Acute Bronchitis, Adult (DC) Forms: [facility] (Estonian) - POA Present On Arrival: None - Clinical Impression Clinical Impression: Bronchitis - PA / CENSUS TAKER / Resident Statement MD/DO has reviewed & agrees with the documentation as recorded. - Scribe Statement The provider has reviewed the documentation as recorded by the Scribe (Nadia Padron) All medical record entries made by the Scribe were at my direction and personally dictated by me. I have reviewed the chart and agree that the record accurately reflects my personal performance of the history, physical exam, medical decision making, and the department course for this patient. I have also personally directed, reviewed, and agree with the discharge instructions and disposition.
--- NOTE | 2018-03-08 15:41 | RAD ---
HISTORY: SOB COMPARISON: Chest x-ray performed 02/16/17 TECHNIQUE: Chest PA and lateral FINDINGS: LUNGS: No focal consolidation. Please note that chest x-ray has limited sensitivity for the detection of pulmonary masses. PLEURA: No significant pleural effusion identified. No definite pneumothorax . CARDIOVASCULAR: Heart size appears within normal limits. No significant atherosclerotic calcification identified. OSSEOUS STRUCTURES: Degenerative changes. VISUALIZED UPPER ABDOMEN: Unremarkable. OTHER FINDINGS: None. IMPRESSION: No acute findings identified.
[2018-03-08 16:32] VITALS: BP 121/79; PULSE 78; TEMP 98.7
== END 2018-03-08 16:35 | disposition home or self-care (01) ==
LOC: C.ER 14:11
DX: J40 Bronchitis, not specified as acute or chronic (principal); F17.210 Nicotine dependence, cigarettes, uncomplicated
CPT/HCPCS: 71046; 80053; 85025; 94150; 94640; 96374; 99284; J2930

== ENCOUNTER 2018-06-14 16:38 | Emergency (ER) | payer MEDICAID ==
[2018-06-14 16:39] VITALS: BMI 25.0
[2018-06-14 17:05] VITALS: RESP 18
[2018-06-14] MEDS ORDERED: Sodium Chloride 0.9% 1,000 ML IV ONE (18:08)
[2018-06-14] MEDS ORDERED: Iohexol 240 (50 ml) PO STA (18:08)
[2018-06-14] MEDS ORDERED: Iohexol 350mg/ml 100 ML ONE (18:24)
[2018-06-14 18:42] LABS: SQUAMOUS EPITHIAL < 1 /hpf (0-5); URINE BILIRUBIN NEGATIVE (NEGATIVE); URINE BLOOD NEGATIVE (NEGATIVE); URINE CLARITY Clear (Clear); URINE COLOR Yellow (YELLOW); URINE GLUCOSE (UA) NORMAL (Normal); URINE LEUKOCYTE ESTERASE NEG Leu/uL (Negative); URINE PROTEIN NEGATIVE (NEGATIVE)
--- NOTE | 2018-06-14 18:52 | C.PDOC ---
History Of Present Illness 42 y/o male with history of gastric bypass surgery presents to the ED complaining of left-sided abdominal pain for 6 days. Pain starts on the left side and radiates to the left flank and back. Associated with some nausea and vomiting. Patient also reports a few episodes of non-bloody diarrhea, describes stool as greasy. Denies recent antibiotic use. No recent travel. No known sick contacts. Patient admits he felt feverish for 1 day, none now. Pain is worse when he is moving/ambulating and also when lying down. Time Seen by Provider: 06/14/18 17:44 Chief Complaint (Nursing): Abdominal Pain History Per: Patient History/Exam Limitations: no limitations Onset/Duration Of Symptoms: Days Current Symptoms Are (Timing): Still Present Location Of Pain/Discomfort: LUQ Radiation Of Pain To:: Flank Quality Of Discomfort: "Pain" Past Medical History Reviewed: Historical Data, Nursing Documentation, Vital Signs Vital Signs: Last Vital Signs Temp 97.9 F 06/14/18 17:01 Pulse 71 06/14/18 17:01 Resp 18 06/14/18 17:01 BP 128/72 06/14/18 17:01 Pulse Ox 100 06/14/18 17:01 - Medical History PMH: Anxiety, Asthma, Back Problems, Bipolar Disorder, Bronchitis, CHF, Depression, Diabetes, HTN, Hypercholesterolemia, Kidney Stones, Migraine, Chronic Kidney Disease, Sleep Apnea (bipap) Comment Only: COPD (\\) Surgical History: Back Surgery, Endoscopy Other Surgeries: Gastric bypass - [facility] Procedures ENDOSC POLYPECTOMY OF LG INTEST (02/14/15) HIGHLY SELECT VAGOTOMY (01/20/15) LAPAROSCOPIC GASTROENTEROSTOMY (01/20/15) OTHER GASTROSCOPY (01/20/15) OTHER SKIN & SUBQ I D (04/19/14) Family History: States: Unknown Family Hx - Social History Hx Tobacco Use: Yes Hx Alcohol Use: No Hx Substance Use: Yes - Immunization History Hx Tetanus Toxoid Vaccination: No Hx Influenza Vaccination: No Hx Pneumococcal Vaccination: No Review Of Systems Constitutional: Negative for: Fever Cardiovascular: Negative for: Light Headedness Respiratory: Negative for: Shortness of Breath Gastrointestinal: Positive for: Nausea, Vomiting, Abdominal Pain (left-sided), D iarrhea. Negative for: Hematochezia Musculoskeletal: Positive for: Back Pain (and left flank) Neurological: Negative for: Weakness, Dizziness Physical Exam - Physical Exam Appears: Non-toxic, No Acute Distress Skin: Warm, Dry Head: Atraumatic, Normacephalic Eye(s): bilateral: Normal Inspection, PERRL, EOMI Oral Mucosa: Moist Neck: Normal ROM Chest: Symmetrical Cardiovascular: Rhythm Regular, No Murmur Respiratory: Normal Breath Sounds, No Rales, No Rhonchi, No Wheezing Gastrointestinal/Abdominal: Soft, Tenderness (to the LUQ), No Guarding, No Rebound Back: No CVA Tenderness Extremity: Bilateral: Atraumatic, Normal Color And Temperature Pulses: Left Dorsalis Pedis: Normal, Right Dorsalis Pedis: Normal Neurological/Psych: Oriented x3, Normal Speech ED Course And Treatment - Laboratory Results Result Diagrams: 06/14/18 18:51 06/14/18 18:51 Lab Results: Urine Color Yellow (YELLOW) 06/14/18 18:18 Urine Clarity Clear (Clear) 06/14/18 18:18 Urine pH 5.0 (5.0-8.0) 06/14/18 18:18 Ur Specific [place] 1.016 (1.003-1.030) 06/14/18 18:18 Urine Protein Negative mg/dL (NEGATIVE) 06/14/18 18:18 Urine Glucose (UA) Normal mg/dL (Normal) 06/14/18 18:18 Urine Ketones Negative mg/dL (NEGATIVE) 06/14/18 18:18 Urine Blood Negative (NEGATIVE) 06/14/18 18:18 Urine Nitrate Negative (NEGATIVE) 06/14/18 18:18 Urine Bilirubin Negative (NEGATIVE) 06/14/18 18:18 Urine Urobilinogen 2.0 mg/dL (0.2-1.0) 06/14/18 18:18 Ur Leukocyte Esterase Neg Nilo/uL (Negative) 06/14/18 18:18 Urine WBC (Auto) 3 /hpf (0-5) 06/14/18 18:18 Urine RBC (Auto) 1 /hpf (0-3) 06/14/18 18:18 Ur Squamous Epith Cells < 1 /hpf (0-5) 06/14/18 18:18 Lab Interpretation: No Acute Changes O2 Sat by Pulse Oximetry: 100 (RA) Pulse Ox Interpretation: Normal - CT Scan/US CT A/P Other Rad Studies (CT/US): Read By Radiologist, Radiology Report Reviewed CT/US Interpretation: EXAM: CT Abdomen and Pelvis without IV contrast. CLINICAL HISTORY: RLQ PAIN. TECHNIQUE: Axial computed tomography images of the abdomen and pelvis without intravenous contrast. CONTRAST: Without intravenous contrast. COMPARISON: None provided. FINDINGS: LUNG BASES: There are apparent very subtle airspace opacities in the posterior right and left lower lobes which could indicate minimal pneumonia. No pleural effusions are seen. 5 mm RLL subpleural nodular scar. LIVER: There is hepatomegaly. The liver measured approximately 18.0 cm in the midclavicular line. No hepatic mass detected. GALLBLADDER AND BILE DUCTS: The gallbladder appears within normal limits. No radioopaque gallstones are seen. No biliary ductal dilatation is evident. PANCREAS: Unremarkable. SPLEEN: Unremarkable. ADRENAL GLANDS: Unremarkable. KIDNEYS, URETERS, AND BLADDER: A 3.0 mm non-obstructing calculus is seen in the posterior upper-mid right renal pole. There is no hydronephrosis or hydroureter. No urinary calculi are seen. STOMACH AND BOWEL: There is evidence of previous gastric surgery. Correlation with past known abdominal surgical history is needed. No evidence of bowel obstruction. There is no evidence of small or large intestinal obstruction. Thick walled fluid filled duodenum and loops of jejunum as well as ileum compatible with enteritis. Thick walled fluid filled colon is noted with involvement of all segments compatible with pancolitis. Infectious and inflammatory etiologies are considered. APPENDIX: No definite evidence of acute appendicitis on CT examination. PERITONEUM: No free fluid. No free air. A small left inguinal hernia is identified which contains fat. No pneumoperitoneum is identified. LYMPH NODES: No bulky adenopathy. REPRODUCTIVE: Unremarkable as visualized. The prostate gland is at the upper limits of normal transverse caliber measuring 5.0 cm. VASCULATURE: No evidence of abdominal aortic aneurysm. BONES: No aggressive appearing osseous lesion. No acute osseous pathology evident. IMPRESSION: Enterocolitis. Infectious and inflammatory etiologies are considered. Hepatomegaly. 3.0 mm non-obstructing calculus is seen in the mid--upper right renal pole. Bibasilar pneumonitis. Reevaluation Time: 21:47 Reassessment Condition: Improved (No vomiting or diarrhea in ED) Medical Decision Making Medical Decision Making: Impression: Abdominal Pain Labs including urine and stool culture ordered. IV fluids infusing. Ordered CT Abd/Pelvis with IV contrast. Disposition Counseled Patient/Family Regarding: Studies Performed, Diagnosis, Need For Followup, Rx Given - Disposition Referrals: Nicole Palma MD [Medical Doctor] - Disposition: HOME/ ROUTINE Disposition Time: 21:51 Condition: STABLE Prescriptions: Dicyclomine [Bentyl] 20 mg PO QID PRN #10 tab PRN Reason: Pain, Severe (8-10) Ondansetron ODT [Zofran ODT] 1 odt PO QID PRN #10 odt PRN Reason: Nausea/Vomiting Instructions: Diarrhea in Adolescents and Adults Forms: [facility] (South Korean) - Clinical Impression Clinical Impression: Enteritis, Nausea, Vomiting, Diarrhea - Scribe Statement The provider has reviewed the documentation as recorded by the Melanie Calvin Provider Attestation: All medical record entries made by the Melanie were at my direction and personally dictated by me. I have reviewed the chart and agree that the record accurately reflects my personal performance of the history, physical exam, medical decision making, and the department course for this patient. I have also personally directed, reviewed, and agree with the discharge instructions and disposition.
[2018-06-14] MEDS ORDERED: Iohexol 240 (50 ml) ONE (18:54)
[2018-06-14 18:55] LABS: BASO % 0.5 % (0.0-2.0); EOS # 0.2 K/uL (0.0-0.7); EOS % 2.7 % (0.0-4.0); HEMOGLOBIN 13.5 g/dL (12.0-18.0); LYMPH # 3.2 K/uL (1.0-4.3); LYMPH % 40.1 % (20.0-40.0); MEAN CELL VOLUME 89.5 fL (80.0-94.0); MEAN CORPUSCULAR HEMOGLOBIN 29.5 pg (27.0-31.0); MEAN PLATELET VOLUME 7.9 fL (7.2-11.7); MONO # 0.6 K/uL (0.0-0.8); MONO % 8.1 % (0.0-10.0); NEUT # 3.9 K/uL (1.8-7.0); NEUT % 48.6 % (50.0-75.0); NRBC % 0.1 % (0.0-2.0); RBC 4.58 Mil/uL (4.40-5.90); RED CELL DISTRIBUTION WIDTH 13.5 % (11.5-14.5)
[2018-06-14 19:12] LABS: ALB/GLOB RATIO 1.9 (1.0-2.1); ALBUMIN 4.4 g/dL (3.5-5.0); ALT/SGPT 27 U/L (21-72); AST/SGOT 38 U/L (17-59); BLOOD UREA NITROGEN 14 mg/dL (9-20); CALCIUM 8.5 mg/dl (8.6-10.4); GFR NON-AFRICAN AMERICAN > 60; LIPASE 296 U/L (23-300)
[2018-06-14 22:12] VITALS: BP 117/76; PULSE 62; TEMP 98.5; O2SAT 97
--- NOTE | 2018-06-15 09:13 | CT ---
CT abdomen and pelvis HISTORY: Abdominal pain. COMPARISON: 05/20/2017 TECHNIQUE: Multiple contiguous axial images were performed through the abdomen and pelvis without the use of intravenous contrast. Subsequently, sagittal and coronal reformatted images obtained. This CT exam was performed using one or more of the following dose reduction techniques: Automated exposure control, adjustment of the mA and/or kV according to patient size, and/or use of iterative reconstruction technique. Findings: Mild linear atelectasis within the right middle lobe. 4 millimeter subpleural nodular density at the lateral aspect of the right lower lobe. 6 millimeter subpleural nodular density along the lateral aspect of the left lower lobe. No pleural or pericardial effusion. Prominent liver. Gallbladder is preserved. Spleen is preserved. Mild nodularity of the adrenal glands. Postsurgical changes at the level of the stomach and upper abdominal bowel. Right kidney: 3 millimeter upper pole nonobstructive calculus. Left Kidney: No calculi or hydronephrosis. Urinary bladder is preserved. Heterogeneous prostate with some calcifications. Evaluation of lower abdominal demonstrates diverticulosis. Mild thickening of the distal descending and sigmoid colon. Postsurgical changes in the upper abdominal bowel. Few mildly distended loops of small bowel in the upper abdomen. Appendix is visualized and within normal limits. Few shotty para-aortic and nodes. Few shotty mesenteric lymph nodes. Degenerative changes in the spine. Right sided paravertebral osteophytosis. Probable vertebral body hemangioma in the T10 vertebral body. Sclerosis of the right SI joint. Impression: 1. Mild thickening of the distal descending and sigmoid colon which may represent a mild colitis. Clinical correlation. 2. Hepatomegaly. 3. Postsurgical changes in the upper abdominal bowel. Few mildly distended loops of small bowel in the upper abdomen. Clinical correlation. 4. 3 millimeter nonobstructing calculus in the mid to upper pole of the right kidney. 5. Bibasilar pneumonitis. Clinical correlation. Additional findings as above. A preliminary report was generated at 9:30 p.m. on 06/14/[address] Feliciano Simpson from [employer].
== END 2018-06-14 22:11 | disposition home or self-care (01) ==
LOC: C.ER 16:38
DX: K52.9 Noninfective gastroenteritis and colitis, unspecified (principal); R11.2 Nausea with vomiting, unspecified
CPT/HCPCS: 74176; 80053; 81001; 83690; 85025; 96361; 96374; 96375; 99285; J1885; J2405; J7030; Q9966

== ENCOUNTER 2018-07-25 15:41 | Emergency (ER) | payer MEDICAID ==
[2018-07-25 15:41] VITALS: BMI 25.0
[2018-07-25 15:53] VITALS: BP 107/65; PULSE 78; RESP 18; TEMP 98.5; O2SAT 98
[2018-07-25] MEDS ORDERED: Amoxicillin-Clav 875-125 mg Tab PO STA (16:06)
--- NOTE | 2018-07-25 16:07 | C.PDOC ---
History Of Present Illness 37 y/o male with PMH of HTN, asthma, bipolar, anxiety presents to the ED c/o right upper dental pain x 4 days. Pt had a tooth extraction 5 days ago and has had persistent pain since the procedure with associated right sided facial swelling. States that dentist did not provide pain medication or antibiotics. Has not followed up with the dentist since the procedure. Denies fever, chills, headache, vision changes, dizziness, SOB, chest pain, or any other associated symptoms. Time Seen by Provider: 07/25/18 16:00 Chief Complaint (Nursing): Dental Pain History Per: Patient History/Exam Limitations: no limitations Onset/Duration Of Symptoms: Days Current Symptoms Are (Timing): Still Present Severity: Moderate Past Medical History Reviewed: Historical Data, Nursing Documentation, Vital Signs Vital Signs: Last Vital Signs Temp 98.5 F 07/25/18 15:51 Pulse 78 07/25/18 15:51 Resp 18 07/25/18 15:51 BP 107/65 07/25/18 15:51 Pulse Ox 98 07/25/18 15:51 - Medical History PMH: Anxiety, Asthma, Back Problems, Bipolar Disorder, Bronchitis, CHF, Depression, Diabetes, HTN, Hypercholesterolemia, Kidney Stones, Migraine, Chronic Kidney Disease, Sleep Apnea (bipap) Comment Only: COPD (\) Surgical History: Back Surgery, Endoscopy - [facility] Procedures ENDOSC POLYPECTOMY OF LG INTEST (02/14/15) HIGHLY SELECT VAGOTOMY (01/20/15) LAPAROSCOPIC GASTROENTEROSTOMY (01/20/15) OTHER GASTROSCOPY (01/20/15) OTHER SKIN & SUBQ I D (04/19/14) Family History: States: Unknown Family Hx - Social History Hx Tobacco Use: Yes Hx Alcohol Use: No Hx Substance Use: Yes - Immunization History Hx Tetanus Toxoid Vaccination: No Hx Influenza Vaccination: No Hx Pneumococcal Vaccination: No Review Of Systems Constitutional: Negative for: Fever, Chills Eyes: Negative for: Vision Change ENT: Positive for: Mouth Pain, Mouth Swelling. Negative for: Throat Pain, Throat Swelling Cardiovascular: Negative for: Chest Pain, Palpitations, Light Headedness Respiratory: Negative for: Cough, Shortness of Breath Gastrointestinal: Negative for: Nausea, Vomiting, Abdominal Pain Musculoskeletal: Negative for: Neck Pain, Back Pain Skin: Negative for: Rash Neurological: Negative for: Weakness, Numbness, Headache, Dizziness Physical Exam - Physical Exam Appears: Well, No Acute Distress Skin: Normal Color, Warm, Dry Head: Atraumatic, Normacephalic, No Swelling Eye(s): bilateral: Normal Inspection, PERRL, EOMI Ear(s): Bilateral: Normal Nose: Normal Oral Mucosa: Moist Teeth: Caries (throughout), Other (extracted upper right molar with surrounding erythema and mild swelling; no fluctuance or visible abscess) Gingiva: Erythema (upper right side), No Ulceration, Swelling (upper right side), Tender (upper right side), No Bleeding, No Abscess Throat: Normal, No Erythema, No Exudate, No Drooling Neck: Normal, Normal ROM, Supple, No Other (no meningeal signs) Lymphatic: No Adenopathy Cardiovascular: Rhythm Regular Respiratory: Normal Breath Sounds Extremity: Normal ROM, Capillary Refill (<2s) Pulses: Left Radial: Normal, Right Radial: Normal Neurological/Psych: Oriented x3, Normal Speech, Normal Motor, Normal Sensation Gait: Steady ED Course And Treatment O2 Sat by Pulse Oximetry: 98 Medical Decision Making Medical Decision Making: Initial Plan: * Toradol * Augmentin Advised PMD and dentist followup. Will discharge with augmentin and pain medi cation. Diagnostic testing results and plan of care discussed with patient. Strict instructions given regarding prescription use, importance of followup, and signs/symptoms to return to ER including worsening pain, difficulty breathing or eating, fever, chills, or any other new/worsening symptoms. Pt verbalized understanding of discussion. Patient is A&Ox3, ambulating with steady gait, with vital signs stable for discharge. Disposition - Disposition Referrals: [facility] [Outside] Disposition: HOME/ ROUTINE Disposition Time: 16:20 Condition: IMPROVED Additional Instructions: Augmentin every 12 hours for 7 days Ibuprofen every 8 hours as needed for pain, with food Followup with dentist tomorrow Followup with primary within 2 days Return to ER with any new/worsening symptoms Prescriptions: Amoxicillin/Clavulanate [Augmentin 875 MG-125 MG] 1 tab PO Q12H 7 Days #14 tab Ibuprofen [Motrin Tab] 800 mg PO Q8H PRN #30 tab PRN Reason: Pain, Moderate (4-7) Instructions: Tooth Extraction, Dental Pain (DC) Forms: General Discharge Instructions, [facility] (South Korean), Work Excuse - Clinical Impression Clinical Impression: Pain, dental
[2018-07-25] MEDS ORDERED: Amoxicillin-Clav 875-125 mg Tab PO ONE (16:16)
== END 2018-07-25 16:56 | disposition home or self-care (01) ==
LOC: C.ER 15:41
DX: K08.89 Other specified disorders of teeth and supporting structures (principal); E78.00 Pure hypercholesterolemia, unspecified; I50.9 Heart failure, unspecified; I12.9 Hypertensive chronic kidney disease with stage 1 through stage 4 chronic kidney disease, or unspecified chronic kidney disease; N18.9 Chronic kidney disease, unspecified; Z72.0 Tobacco use
CPT/HCPCS: 96372; 99283; J1885

== ENCOUNTER 2018-10-04 13:14 | Emergency (ER) | payer MEDICAID ==
[2018-10-04 13:33] VITALS: BP 116/68; PULSE 67; RESP 18; TEMP 98.9; O2SAT 97; BMI 25.9
--- NOTE | 2018-10-04 13:57 | C.PDOC ---
History Of Present Illness 43 y/o male presents to ED complaining of left 3rd digit pain for 1 day. States yesterday he was carrying something heavy, slipped and hyperextended his left 3rd finger. Patient reports taking Motrin without relief. Has no other injuries. Time Seen by Provider: 10/04/18 13:28 Chief Complaint (Nursing): Finger,Hand,&Wrist History Per: Patient History/Exam Limitations: no limitations Onset/Duration Of Symptoms: Days Current Symptoms Are (Timing): Still Present Past Medical History Reviewed: Historical Data, Nursing Documentation, Vital Signs Vital Signs: Last Vital Signs Temp 98.9 F 10/04/18 13:22 Pulse 67 10/04/18 13:22 Resp 18 10/04/18 13:22 BP 116/68 10/04/18 13:22 Pulse Ox 97 10/04/18 13:22 Primary Care Provider: Nicole Palma - Medical History PMH: Anxiety, Asthma, Back Problems, Bipolar Disorder, Bronchitis, CHF, Depression, Diabetes, HTN, Hypercholesterolemia, Kidney Stones, Migraine, Chronic Kidney Disease, Sleep Apnea (bipap) Comment Only: COPD (\) Surgical History: Back Surgery, Endoscopy - [facility] Procedures ENDOSC POLYPECTOMY OF LG INTEST (02/14/15) HIGHLY SELECT VAGOTOMY (01/20/15) LAPAROSCOPIC GASTROENTEROSTOMY (01/20/15) OTHER GASTROSCOPY (01/20/15) OTHER SKIN & SUBQ I D (04/19/14) Family History: States: No Known Family Hx - Social History Hx Tobacco Use: Yes Hx Alcohol Use: No Hx Substance Use: Yes - Immunization History Hx Tetanus Toxoid Vaccination: No Hx Influenza Vaccination: No Hx Pneumococcal Vaccination: No Review Of Systems Except As Marked, All Systems Reviewed And Found Negative. Musculoskeletal: Positive for: Other (left 3rd digit pain) Skin: Negative for: Rash Neurological: Negative for: Weakness, Numbness Physical Exam - Physical Exam Appears: Non-toxic, No Acute Distress Skin: Warm, Dry Head: Normacephalic Eye(s): bilateral: Normal Inspection Oral Mucosa: Moist Neck: Supple Extremity: Tenderness (erythema and swelling of left 3rd digit, tender to touch, limited ROM), Capillary Refill (less than 2 seconds), No Deformity, Other (Full ROM at the wrist and all other fingers; distal sensation intact) Extremity: Bilateral: Normal Color And Temperature Pulses: Left Radial: Normal Neurological/Psych: Oriented x3, Normal Speech, Normal Motor, Normal Sensation ED Course And Treatment O2 Sat by Pulse Oximetry: 97 (RA) Pulse Ox Interpretation: Normal Progress Note: X-ray of left hand taken, showed no fractures. Finger splinted by me and prescribed patient pain control with motrin. Disposition Counseled Patient/Family Regarding: Studies Performed, Diagnosis - Disposition Disposition: HOME/ ROUTINE Disposition Time: 13:54 Condition: STABLE Additional Instructions: You were seen in the ED for a finger sprain, your x-ray did not show any fracture. Continue taking motrin for pain control and wear the finger splint provided for 1-2 weeks. Return to the ED for worsening symptoms Prescriptions: Ibuprofen [Motrin Tab] 600 mg PO Q8 #30 tab Instructions: Finger Sprain (DC) Forms: [facility] (Uzbek) - POA Present On Arrival: None - Clinical Impression Clinical Impression: Sprain of left middle finger - PA / [employer] LO[employer] OFFICER / Resident Statement MD/DO has reviewed & agrees with the documentation as recorded. - Scribe Statement The provider has reviewed the documentation as recorded by the Scribe Zulma Goldstein All medical record entries made by the Scribfeliciano were at my direction and personally dictated by me. I have reviewed the chart and agree that the record accurately reflects my personal performance of the history, physical exam, medical decision making, and the department course for this patient. I have also personally directed, reviewed, and agree with the discharge instructions and disposition.
--- NOTE | 2018-10-04 14:22 | RAD ---
Date of service: 10/04/2018 PROCEDURE: Left middle finger radiographs. HISTORY: finger pain COMPARISON: None. TECHNIQUE: AP radiograph of the left hand, as well as spot oblique and lateral images of index finger were obtained. 4 views obtained. FINDINGS: LEFT MIDDLE FINGER: Left middle finger normal, without fracture of focal lesion. Remainder of the left hand (as seen on the AP view) is grossly unremarkable. JOINTS: Normal. SOFT TISSUES: Distal soft tissue swelling. No visualized radiopaque foreign body. OTHER FINDINGS: None. IMPRESSION: Soft tissue swelling without acute articular or osseous abnormality.
== END 2018-10-04 13:59 | disposition home or self-care (01) ==
LOC: C.ER 13:14
DX: S63.613A Unspecified sprain of left middle finger, initial encounter (principal); X50.9XXA Other and unspecified overexertion or strenuous movements or postures, initial encounter; E78.00 Pure hypercholesterolemia, unspecified; I50.9 Heart failure, unspecified; I12.9 Hypertensive chronic kidney disease with stage 1 through stage 4 chronic kidney disease, or unspecified chronic kidney disease; N18.9 Chronic kidney disease, unspecified; Z72.0 Tobacco use; F31.9 Bipolar disorder, unspecified

== ENCOUNTER 2018-10-07 07:42 | Emergency (ER) | payer MEDICAID ==
[2018-10-07 07:42] VITALS: BMI 25.0
[2018-10-07 07:51] VITALS: TEMP 98.5; O2SAT 100
[2018-10-07] MEDS ORDERED: Sodium Chloride 0.9% 1,000 ML IV ONE (08:11)
--- NOTE | 2018-10-07 08:12 | C.PDOC ---
History Of Present Illness 43 year old male with PMHx of kidney stones presents to the ED complaining of left sided low back pain associated with sweats, and dysuria since yesterday. Reports pain radiates to left sided abdomen when he urinates. States he has been taking Tylenol and Motrin with no relief. Denies prior surgery for kidney stones. Time Seen by Provider: 10/07/18 08:03 Chief Complaint (Nursing): Male Genitourinary History Per: Patient History/Exam Limitations: no limitations Onset/Duration Of Symptoms: Days (1) Current Symptoms Are (Timing): Still Present Quality Of Discomfort: "Pain" Associated Symptoms: Nausea, Urinary Symptoms. denies: Fever, Chills, Vomiting, Back Pain, Chest Pain Past Medical History Reviewed: Historical Data, Nursing Documentation, Vital Signs Vital Signs: Last Vital Signs Temp 98.5 F 10/07/18 07:48 Pulse 65 10/07/18 07:48 Resp 17 10/07/18 07:48 BP 117/75 10/07/18 07:48 Pulse Ox 100 10/07/18 07:48 Primary Care Provider: Non [facility] Provider, - Medical History PMH: Anxiety, Asthma, Back Problems, Bipolar Disorder, Bronchitis, CHF, Depression, Diabetes, HTN, Hypercholesterolemia, Kidney Stones, Migraine, Chronic Kidney Disease, Sleep Apnea (bipap) Comment Only: COPD (\\) Surgical History: Back Surgery, Endoscopy - [facility] Procedures ENDOSC POLYPECTOMY OF LG INTEST (02/14/15) HIGHLY SELECT VAGOTOMY (01/20/15) LAPAROSCOPIC GASTROENTEROSTOMY (01/20/15) OTHER GASTROSCOPY (01/20/15) OTHER SKIN & SUBQ I D (04/19/14) Family History: States: No Known Family Hx - Social History Hx Tobacco Use: Yes Hx Alcohol Use: No Hx Substance Use: Yes - Immunization History Hx Tetanus Toxoid Vaccination: No Hx Influenza Vaccination: No Hx Pneumococcal Vaccination: No Review Of Systems Except As Marked, All Systems Reviewed And Found Negative. Constitutional: Positive for: Sweats. Negative for: Fever, Chills Cardiovascular: Negative for: Chest Pain Respiratory: Negative for: Shortness of Breath Gastrointestinal: Positive for: Nausea, Abdominal Pain. Negative for: Vomiting, Diarrhea Genitourinary: Positive for: Dysuria. Negative for: Hematuria Musculoskeletal: Positive for: Back Pain Physical Exam - Physical Exam Appears: Non-toxic, No Acute Distress Skin: Warm, Dry, No Rash Head: Atraumatic, Normacephalic Eye(s): bilateral: Normal Inspection Ear(s): Bilateral: Normal Nose: Normal Oral Mucosa: Moist Throat: No Erythema, No Exudate Neck: Normal ROM, Supple Chest: Symmetrical Cardiovascular: Rhythm Regular, No Friction Rub, No Murmur Respiratory: Normal Breath Sounds, No Rales, No Rhonchi, No Wheezing Gastrointestinal/Abdominal: Soft, No Tenderness, No Distention, No Guarding, No Rebound Back: Normal Inspection, No CVA Tenderness Extremity: Normal ROM, No Swelling Neurological/Psych: Oriented x3, Normal Speech, Normal Motor Gait: Steady ED Course And Treatment - Laboratory Results Result Diagrams: 10/07/18 08:16 10/07/18 08:16 O2 Sat by Pulse Oximetry: 100 (RA) Pulse Ox Interpretation: Normal - Other Rad CT abd/pel X-Ray: Viewed By Me, Read By Radiologist Interpretation: Accession No. : [id number]. Patient Name / ID : FRANCO GODFREY / [id number]. Exam Date : 10/07/2018 09:39:35 ( Approved ). Study Comment : Sex / Age : M / 43Y. Creator : Phillip Sandra. Dictator : Laurie Palma MD. Lead Web Application Developer : Tack Welder : Laurie Palma MD. Approver2 : Report Date : 10/07/2018 10:01:58. My Comment : . PROCEDURE: CT Abdomen and Pelvis without Oral or IV contrast. HISTORY: flank pain, suprapubic pain, r/o stone. COMPARISON: CT abdomen pelvis without IV contrast performed 06/14/18. TECHNIQUE: Contiguous axial images of the abdomen and pelvis. No oral or IV contrast administered. Coronal and Sagittal reformats generated and reviewed. Radiation dose: Total exam DLP = 820.55 mGy- cm. This CT exam was performed using one or more of the following dose reduction techniques: Automated exposure control, adjustment of the mA and/or kV according to patient size, and/or use of iterative reconstruction technique. FINDINGS: There is limited evaluation of the solid organs without the administ ration of IV contrast. LOWER THORAX: No visible consolidation, pleural effusion, or pneumothorax. LIVER: Hepatomegaly. GALLBLADDER AND BILE DUCTS: Unremarkable unenhanced appearance. PANCREAS: Unremarkable unenhanced appearance. SPLEEN: Unremarkable unenhanced appearance. ADRENALS: Bilateral adrenal gland hypertrophy. KIDNEYS AND URETERS: No hydronephrosis or obstructing renal calculus. Punctate nonobstructing right renal calculus. BLADDER: Mildly thick-walled urinary bladder may be exaggerated by under distension. REPRODUCTIVE: Unremarkable. APPENDIX: The appendix appears within normal limits of caliber. No secondary signs of acute appendicitis. BOWEL: The stomach is nondistended. Postsurgical gastric changes. Lack of oral contrast limits evaluation for bowel pathology. The bowel loops appear within normal limits of caliber without evidence of intestinal obstruction. PERITONEUM: No significant free fluid. No definite free air. LYMPH NODES: Prominent bilateral inguinal adenopathy measuring up to 9 mm in short axis. VASCULATURE: No significant atherosclerotic calcifications identified. No aortic aneurysm. BONES: No acute osseous abnormality is detected. OTHER FINDINGS: None. IMPRESSION: Hepatomegaly. Nonobstructing punctate right renal calculus. Postsurgical changes of the stomach. Prominent bilateral inguinal adenopathy measuring up to 9 mm in short axis. Mildly thick-walled urinary bladder may be exaggerated by under distension. Correlate clinically. Additional findings as above. Medical Decision Making Medical Decision Making: Plan - CT abd/pel - Toradol 4mg IVP - IV fluids - Urine cultures - UA On re-exam, the patient reports improvement of symptoms. Lungs are CTA, heart is RRR, abdomen is soft, non-tender and the patient is tolerating PO well. Pt is ambulatory in the ED with steady gait. Follow up with the medical doctor within 1-2 days. Return if worsened. Disposition - Disposition Referrals: John Paul Crespo MD [Staff Provider] - Disposition: HOME/ ROUTINE Disposition Time: 12:22 Condition: STABLE Additional Instructions: Follow up with the medical doctor within 1-2 days. Return if worsened. Prescriptions: Ciprofloxacin [Cipro] 1 tab PO BID #14 tab Tamsulosin [Flomax] 0.4 mg PO DAILY #10 cap traMADol [Ultram] 50 mg PO Q6 PRN #10 tab PRN Reason: Pain Instructions: Dysuria, Adult (DC) Forms: [employer] (Pashto) - Clinical Impression Clinical Impression: Back pain - PA / CRITICAL CARE EDUCATOR / Resident Statement MD/DO has reviewed & agrees with the documentation as recorded. - Scribe Statement The provider has reviewed the documentation as recorded by the Scribe Pratima Roca All medical record entries made by the Prabhakaribfeliciano were at my direction and personally dictated by me. I have reviewed the chart and agree that the record accurately reflects my personal performance of the history, physical exam, medical decision making, and the department course for this patient. I have also personally directed, reviewed, and agree with the discharge instructions and disposition.
[2018-10-07] MEDS ORDERED: Sodium Chloride 0.9% 1,000 ML ONE (08:19)
[2018-10-07 08:23] LABS: BASO % 0.6 % (0.0-2.0); EOS # 0.2 K/uL (0.0-0.7); EOS % 3.3 % (0.0-4.0); HEMOGLOBIN 14.9 g/dL (12.0-18.0); LYMPH # 2.3 K/uL (1.0-4.3); MEAN CELL VOLUME 90.7 fL (80.0-94.0); MEAN CORPUSCULAR HEMOGLOBIN 31.9 pg (27.0-31.0); MEAN CORPUSCULAR HGB CONC 35.2 g/dL (33.0-37.0); MEAN PLATELET VOLUME 8.2 fL (7.2-11.7); MONO # 0.8 K/uL (0.0-0.8); MONO % 10.8 % (0.0-10.0); NEUT # 3.8 K/uL (1.8-7.0); NEUT % 53.3 % (50.0-75.0); NRBC % 0.1 % (0.0-2.0); RBC 4.67 Mil/uL (4.40-5.90); RED CELL DISTRIBUTION WIDTH 13.9 % (11.5-14.5); WHITE BLOOD COUNT 7.1 K/uL (4.8-10.8)
[2018-10-07 08:36] LABS: ALB/GLOB RATIO 1.8 (1.0-2.1); ALBUMIN 4.6 g/dL (3.5-5.0); ALT/SGPT 30 U/L (21-72); AST/SGOT 39 U/L (17-59); BLOOD UREA NITROGEN 15 mg/dL (9-20); CALCIUM 9.2 mg/dl (8.6-10.4); GFR NON-AFRICAN AMERICAN > 60; LIPASE 170 U/L (23-300)
[2018-10-07 08:55] LABS: SQUAMOUS EPITHIAL < 1 /hpf (0-5); URINE BILIRUBIN NEGATIVE (NEGATIVE); URINE BLOOD NEGATIVE (NEGATIVE); URINE CALCIUM OXALATE CRYSTALS FEW /hpf (<OCC); URINE CLARITY Hazy (Clear); URINE COLOR Yellow (YELLOW); URINE GLUCOSE (UA) NORMAL (Normal); URINE LEUKOCYTE ESTERASE NEG Leu/uL (Negative); URINE PROTEIN NEGATIVE (NEGATIVE)
[2018-10-07] MEDS ORDERED: Lidocaine 133 MG in Sodium Chloride 0.9% 100 ML IV STA (10:43)
--- NOTE | 2018-10-07 11:12 | CT ---
PROCEDURE: CT Abdomen and Pelvis without Oral or IV contrast. HISTORY: flank pain, suprapubic pain, r/o stone COMPARISON: CT abdomen pelvis without IV contrast performed 06/14/18 TECHNIQUE: Contiguous axial images of the abdomen and pelvis. No oral or IV contrast administered. Coronal and Sagittal reformats generated and reviewed. Radiation dose: Total exam DLP = 820.55 mGy-cm. This CT exam was performed using one or more of the following dose reduction techniques: Automated exposure control, adjustment of the mA and/or kV according to patient size, and/or use of iterative reconstruction technique. FINDINGS: There is limited evaluation of the solid organs without the administration of IV contrast. LOWER THORAX: No visible consolidation, pleural effusion, or pneumothorax. LIVER: Hepatomegaly. GALLBLADDER AND BILE DUCTS: Unremarkable unenhanced appearance. PANCREAS: Unremarkable unenhanced appearance. SPLEEN: Unremarkable unenhanced appearance. ADRENALS: Bilateral adrenal gland hypertrophy. KIDNEYS AND URETERS: No hydronephrosis or obstructing renal calculus. Punctate nonobstructing right renal calculus. BLADDER: Mildly thick-walled urinary bladder may be exaggerated by under distension. REPRODUCTIVE: Unremarkable. APPENDIX: The appendix appears within normal limits of caliber. No secondary signs of acute appendicitis. BOWEL: The stomach is nondistended. Postsurgical gastric changes. Lack of oral contrast limits evaluation for bowel pathology. The bowel loops appear within normal limits of caliber without evidence of intestinal obstruction. PERITONEUM: No significant free fluid. No definite free air. LYMPH NODES: Prominent bilateral inguinal adenopathy measuring up to 9 mm in short axis. VASCULATURE: No significant atherosclerotic calcifications identified. No aortic aneurysm. BONES: No acute osseous abnormality is detected. OTHER FINDINGS: None. IMPRESSION: Hepatomegaly. Nonobstructing punctate right renal calculus. Postsurgical changes of the stomach. Prominent bilateral inguinal adenopathy measuring up to 9 mm in short axis. Mildly thick-walled urinary bladder may be exaggerated by under distension. Correlate clinically. Additional findings as above.
[2018-10-07 11:56] VITALS: BP 95/67; PULSE 56; RESP 14
== END 2018-10-07 12:39 | disposition home or self-care (01) ==
LOC: C.ER 07:42
DX: M54.5 Low back pain (principal)
CPT/HCPCS: 74176; 80053; 81001; 83690; 85025; 87086; 96361; 96374; 96375; 99285; J1885; J2001; J2405; J7030